=== PATIENT | male | born 1970 | race American Indian/Alaskan Native ===

== ENCOUNTER 2017-04-24 09:59 | Observation (INO) | payer OTHER ==
[2017-04-24 10:08] VITALS: BMI 26.6
[2017-04-24 10:58] LABS: BASO # 0.01 K/mm3 (0.0-2.0); BASO % 0.2 % (0.0-3.0); EOS # 0.1 (0.0-0.7); GRAN # 2.91 (1.4-6.5); GRAN % 65.4 % (50.0-68.0); HEMATOCRIT 48.2 % (42.0-52.0); LYMPH # 1.1 (1.2-3.4); LYMPH % 24.5 % (22.0-35.0); MEAN CELL VOLUME 90.9 fl (80.0-105.0); MEAN CORPUSCULAR HEMOGLOBIN 32.3 pg (25.0-35.0); MEAN CORPUSCULAR HGB CONC 35.5 g/dl (31.0-37.0); MEAN PLATELET VOLUME 11.2 fl (7.0-11.0); MONO # 0.4 (0.1-0.6); MONO % 7.9 % (1.0-6.0); RED CELL DISTRIBUTION WIDTH 13.2 % (11.5-14.5); WHITE BLOOD COUNT 4.5 10^3/ul (4.5-11.0)
--- NOTE | 2017-04-24 10:58 | RAD ---
HISTORY: palpitations COMPARISON: Comparison chest 04/08/2016 FINDINGS: In situ left-sided PICC line with tip in the SVC LUNGS: Poor inspiration with low lung volumes, crowded bronchovascular markings and bibasilar atelectasis; developing lower lobe infiltrates could be excluded with followup radiographs. . Tiny bilateral effusions not excluded PLEURA: As above. No pneumothorax apparent. CARDIOVASCULAR: Heart size is upper limits of normal/ borderline enlarged. Metallic clips seen in the right hilar region. Correlation with surgical history recommended OSSEOUS STRUCTURES: Old healed right posterior fifth rib fracture VISUALIZED UPPER ABDOMEN: Normal. OTHER FINDINGS: None. IMPRESSION: Poor inspiration with low lung volumes, crowded bronchovascular markings and bibasilar atelectasis; developing lower lobe infiltrates could be excluded with followup radiographs. . Tiny bilateral effusions not excluded
--- NOTE | 2017-04-24 11:02 | ED PDOC ---
Arrival/HPI - History of Present Illness Time/Duration: Other (upon waking) Symptom Onset: Sudden Symptom Course: Intermittent <Andrew Diaz - Last Filed: 04/24/17 14:23> - General Historian: Patient - History of Present Illness Activities at Onset: Light <Mika Humphrey - Last Filed: 04/24/17 17:22> - General Chief Complaint: Dizziness/Lightheaded Time Seen by Provider: 04/24/17 10:01 - History of Present Illness Narrative History of Present Illness (Text): 04/24/17 10:50 This is a 47 year old male with PMHx Lung CA s/p resection, COPD, pulmonary fibrosis who presents complaining of dizziness since waking up this morning. Patient describes it as the room is spinning. Patient also subsequently developed palpitations and SOB. Patient called the ambulance but upon arrival, patient states that they told him that his vitals were stable and he was asymptomatic at the time. The symptoms returned prompting him to call again and was brought in. Patient states that this has never happened before. Patient states that he has been feeling unfocused this past week. He states that 2 weeks ago, Dr. Adamson removed "300 units of blood" from him in order to prevent his blood from clotting. Patient denies headache, chest pain and dyspnea at this time. Patient states that he is currently asymptomatic after arrival to the ED. PMHx: Lung CA, COPD, pulmonary fibrosis PSHx: Tumor resection in 2015 and partial right lung resection Allergies: NKDA Social: Intermittent on/off smoker for past 20 years. Denies alcohol, drugs. 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 PMD: Dr. Rodriguez Heme/Onc: Dr. Adamson (Andrew Diaz) Past Medical History - Provider Review Nursing Documentation Reviewed: Yes - Infectious Disease Hx of Infectious Diseases: None - Cardiac Hx Pacemaker: No - Pulmonary Hx Respiratory Disorders: Yes Other/Comment: cystic fibrosis - Neurological Hx Paralysis: No - Hematological/Oncological Hx Blood Transfusions: No - Musculoskeletal/Rheumatological Hx Musculoskeletal Disorders: No - Psychiatric Hx Emotional Abuse: No Hx Physical Abuse: No Hx Substance Use: Yes (MARIJUANA DAILY) - Anesthesia Hx Anesthesia: No Hx Anesthesia Reactions: No Hx Malignant Hyperthermia: No - Suicidal Assessment Feels Threatened In Home Enviroment: No <Andrew Diaz - Last Filed: 04/24/17 14:23> Family/Social History - Physician Review Nursing Documentation Reviewed: Yes Family/Social History: No Known Family HX Smoking Status: Never Smoked Hx Alcohol Use: Yes (1-2 BEERS DAY) Hx Substance Use: Yes (MARIJUANA DAILY) <Andrew Diaz - Last Filed: 04/24/17 14:23> Allergies/Home Meds <Andrew Diaz - Last Filed: 04/24/17 14:23> <Mika Humphrey - Last Filed: 04/24/17 17:22> Allergies/Adverse Reactions: Allergies No Known Allergies Allergy (Verified 04/24/17 10:09) Home Medications: Home Meds Medication Instructions Recorded Confirmed Fluticasone/Vilanterol [Breo 1 inhaler INH DAILY 04/24/17 04/24/17 Ellipta 100-25 Mcg INH] Nintedanib Esylate [Ofev] 150 mg PO DAILY 04/24/17 04/24/17 Review of Systems - Review of Systems Constitutional: Normal Eyes: Normal ENT: Normal Respiratory: SOB (resolved currently) Cardiovascular: Palpitations (resolved currently). absent: Chest Pain Gastrointestinal: Normal Genitourinary Male: Normal Musculoskeletal: Normal Skin: Normal Neurological: Dizziness (resolved currently). absent: Headache Endocrine: Normal Hemo/Lymphatic: Normal Psychiatric: Normal <Andrew Diaz - Last Filed: 04/24/17 14:23> Physical Exam Vital Signs Reviewed: Yes Temperature: Afebrile Blood Pressure: Hypertensive Pulse: Tachycardic Respiratory Rate: Normal Appearance: Positive for: Well-Appearing Pain Distress: None Mental Status: Positive for: Alert and Oriented X 3 - Systems Exam Head: Present: Atraumatic, Normocephalic Pupils: Present: PERRL Extroacular Muscles: Present: EOMI Conjunctiva: Present: Normal Ears: Present: Erythema (slight erythema left ear close to TM) Mouth: Present: Moist Mucous Membranes Neck: Present: Normal Range of Motion Respiratory/Chest: Present: Good Air Exchange, Other (crackles heard bilaterally in the lower lobes, which the patient seemed aware of as a chronic finding). No: Accessory Muscle Use, Wheezes, Rhonchi Cardiovascular: Present: Normal S1, S2, Tachycardic Abdomen: Present: Normal Bowel Sounds. No: Tenderness, Distention Upper Extremity: Present: Normal Inspection, NORMAL PULSES. No: Edema Lower Extremity: Present: Normal Inspection, NORMAL PULSES. No: Edema, CALF TENDERNESS Neurological: Present: GCS=15, CN II-XII Intact, Speech Normal, Motor Func Grossly Intact, Normal Sensory Function Skin: Present: Warm, Dry, Normal Color. No: Rashes Psychiatric: Present: Alert, Oriented x 3 <Andrew Diaz - Last Filed: 04/24/17 14:23> Medical Decision Making - Lab Interpretations I have reviewed the lab results: Yes - EKG Interpretation Interpreted by ED Physician: Yes Type: 12 lead EKG <Andrew Diaz - Last Filed: 04/24/17 14:23> <Mika Humphrey - Last Filed: 04/24/17 17:22> ED Course and Treatment: 04/24/17 12:27 CBC, CMP, Coags, EKG, Portable CXR, D dimer EKG showed Sinus tachycardia at rate 102. Portable CXR: IMPRESSION: Poor inspiration with low lung volumes, crowded bronchovascular markings and bibasilar atelectasis; developing lower lobe infiltrates could be excluded with followup radiographs. . Tiny bilateral effusions not excluded D Dimer negative. Dr. Schulz covering for Dr. Adamson accepted the patient for observation. ( Andrew Diaz) 04/24/17 12:50 Patient Seen With Resident: In agreement with resident note which contains more details about the patient. Patient was seen and evaluated with resident. Came up with plan and treatment together. 47 year old male presents complaining of dizziness since waking up this morning. Upon further evaluation the patient reports for several days he has not been feeling himself, stating that when he drives he has had episodes of lightheadedness that he "feels like I'm going to pass out" but these have NOT been associated with any dizziness or pain or shortness of breath. Today the patient reports intermittent sensation of dizziness that are associated with palpations. While being observed in ED, he states that he has not had any palpitations or episodes of dizziness. He DENIES any acute chest pain or shortness of breath. He is noted to have prior history of lung disease, lung cancer, but states his breathing in ED is AT HIS BASELINE. No respiratory distress is noted. CXR reviewed with interstitial changes although I feel possibly chronic as known lung disease and no fever or respiratory distress. No focal neuro deficits with serial exam. On initial exam, sinus tachycardia although with observation heart rate improved to a regular rate of 90, no hypotension noted. Cannot exclude underlying cardiac arrhythmia, cardiac disease given his history , have recommended admission for monitoring as well as cardiology and neurologic evaluation. Ddimer unremarkable. No chest pain or pleuritic pain or calf pain on re- evaluation. Case d/w Dr. Yohana Zendejas, covering for Dr. Adamson, accepts patient to his service. (Mika Humphrey) - Lab Interpretations Lab Results: 04/24/17 10:20 04/24/17 10:20 Lab Results 04/24/17 10:20: Sodium 137, Potassium 3.6, Chloride 99, Carbon Dioxide 25, Anion Gap 17, BUN 12, Creatinine 0.8, Est GFR ( Amer) > 60, Est GFR (Non- Af Amer) > 60, Random Glucose 113 H, Calcium 9.2, Total Bilirubin 1.2, AST 33, ALT 27, Alkaline Phosphatase 74, Lactate Dehydrogenase 569, Total Creatine Kinase 224, Troponin I < 0.01, Total Protein 7.3, Albumin 4.3, Globulin 3.0, Albumin/Globulin Ratio 1.4 04/24/17 10:20: PT 10.9, INR 1.01, APTT 27.0, D-Dimer, Quantitative 0.40 04/24/17 10:20: WBC 4.5, RBC 5.30, Hgb 17.1, Hct 48.2, MCV 90.9, MCH 32.3, MCHC 35.5, RDW 13.2, Plt Count 180, MPV 11.2 H, Gran % 65.4, Lymph % (Auto) 24.5, [place] % (Auto) 7.9 H, Eos % (Auto) 2.0, Baso % (Auto) 0.2, Gran # 2.91, Lymph # 1.1 L, [place] # 0.4, Eos # 0.1, Baso # 0.01 - RAD Interpretation Radiology Orders: 04/24/17 10:40 CHEST PORTABLE [RAD] Stat 04/24/17 12:37 HEAD W/O CONTRAST [CT] Stat - Medication Orders Current Medication Orders: Acetaminophen (Tylenol 325mg Tab) 650 mg PO Q6H PRN PRN Reason: Pain, Mild (1-3) Folic Acid (Folic Acid) 1 mg PO DAILY KRISTEN Last Admin: 04/24/17 14:18 Dose: 1 mg Sodium Chloride (Sodium Chloride 0.9%) 1,000 mls @ 50 mls/hr IV .Q20H KRISTEN Stop: 04/24/17 23:59 Last Admin: 04/24/17 15:15 Dose: 50 mls/hr Meclizine HCl (Antivert) 25 mg PO Q8H PRN PRN Reason: Dizziness Metoprolol Tartrate (Lopressor) 25 mg PO BID KRISTEN Non-Formulary Medication (Breo) 1 inhaler INH DAILY KRISTEN Non-Formulary Medication (Ofev) 150 mg PO DAILY KRISTEN Discontinued Medications Non-Formulary Medication (Ofev) 1 tab PO DAILY KRISTEN <Andrew Diaz - Last Filed: 04/24/17 14:23> - Scribe Statement The provider has reviewed the documentation as recorded by the Scribe <Mika Humphrey - Last Filed: 04/24/17 17:22> - Scribe Statement Maci Oliver All medical record entries made by the Scribe were at my direction and personally dictated by me. I have reviewed the chart and agree that the record accurately reflects my personal performance of the history, physical exam, medical decision making, and the department course for this patient. I have also personally directed, reviewed, and agree with the discharge instructions and disposition. (Mika Humphrey) Disposition/Present on Arrival - Present on Arrival Any Indicators Present on Arrival: No History of DVT/PE: No History of Uncontrolled Diabetes: No Urinary Catheter: No History of Decub. Ulcer: No History Surgical Site Infection Following: None - Disposition Have Diagnosis and Disposition been Completed?: Yes Disposition Time: 12:30 Patient Plan: Admission <Andrew Diaz - Last Filed: 04/24/17 14:23> <Mika Humphrey - Last Filed: 04/24/17 17:22> - Disposition Diagnosis: Dizziness, Palpitations Disposition: HOSPITALIZED Patient Problems: Current Active Problems Problem Status Onset Dizziness Acute Palpitations Acute Condition: FAIR
[2017-04-24 11:06] LABS: ALB/GLOB RATIO 1.4 (1.1-1.8); ALKALINE PHOSPHATASE 74 U/L (38-126); ALT/SGPT 27 U/L (7-56); AST/SGOT 33 U/L (17-59); BILIRUBIN,TOTAL 1.2 mg/dL (0.2-1.3); BLOOD UREA NITROGEN 12 mg/dL (7-21); CALCIUM 9.2 mg/dL (8.4-10.5); CARBON DIOXIDE 25 mmol/L (21-33); CHLORIDE 99 mmol/L (98-107); GFR AFRICAN-AMERICAN > 60; GLUCOSE,RANDOM 113 mg/dL (70-110); POTASSIUM 3.6 mmol/L (3.6-5.0); SODIUM 137 mmol/L (132-148); TOTAL PROTEIN 7.3 g/dL (5.8-8.3)
[2017-04-24 11:09] LABS: INR 1.01 (0.93-1.08)
[2017-04-24 11:14] LABS: D DIMER 0.4 mg/L FEU (0-0.50)
[2017-04-24 11:35] LABS: TROPONIN I < 0.01 ng/mL
--- NOTE | 2017-04-24 13:09 | CT ---
PROCEDURE: CT HEAD WITHOUT CONTRAST. HISTORY: near syncope COMPARISON: None available. TECHNIQUE: Axial computed tomography images were obtained through the head/brain without intravenous contrast. Radiation dose: Total exam DLP = 725.84 mGy-cm. This CT exam was performed using one or more of the following dose reduction techniques: Automated exposure control, adjustment of the mA and/or kV according to patient size, and/or use of iterative reconstruction technique. FINDINGS: HEMORRHAGE: No acute parenchymal, subarachnoid nor extra-axial hemorrhage. BRAIN: No evidence of large infarct. No obvious parenchymal nor extra-axial mass or collection seen on this noncontrast study. Ventricular and sulcal size are within range of normal for this patient's stated age. VENTRICLES: No evidence of obstructive hydrocephalus CALVARIUM: There are no acute calvarial fracture seen. Note made a few scattered subcutaneous calcifications nonspecific. PARANASAL SINUSES: Unremarkable as visualized. No significant inflammatory changes. MASTOID AIR CELLS: Unremarkable as visualized. No inflammatory changes. OTHER FINDINGS: None. IMPRESSION: The no acute intracranial hemorrhage. Normal CT of the Head.
--- NOTE | 2017-04-24 14:17 | CARD ---
APPROVED REPORT EKG Measurement Heart [id number] <Conclusion> Sinus tachycardia Otherwise normal ECG
[2017-04-24] MEDS ORDERED: Sodium Chloride 0.9% 1,000 ML IV SCH (14:45)
[2017-04-24] MEDS: MethylPREDNISolone 40 mg Vial IVP SCH (22:17)
--- NOTE | 2017-04-25 03:21 | CON ---
HISTORY OF PRESENT ILLNESS: This is a 47-year-old black male with past medical history of lung CA, status post resection, COPD, pulmonary fibrosis, who came to the hospital with dizziness on waking up this morning and called to evaluate the patient. The patient was recently discharged from the hospital. PAST MEDICAL HISTORY: Lung CA, COPD, pulmonary fibrosis. PAST SURGICAL HISTORY: Tumor resection in 2015 and partial right lung resection. ALLERGIES: NO KNOWN DRUG ALLERGIES. PHYSICAL EXAMINATION HEENT: Normocephalic and atraumatic. NECK: Supple. NEUROLOGIC: Awake, alert, and oriented to self and place. No aphasia. Cranial nerves II through XII are tested. Pupils reactive. EOM intact. Visual field full. No facial asymmetry. Tongue midline. Motor examination, moves all the extremities equally. Cerebellar and gait deferred. IMPRESSION: Dizziness, possibly secondary to his chemo medication and discussed the case with Dr. Schulz. Continue present management. We will follow up. Kings Linares MD
--- NOTE | 2017-04-25 04:56 | HP ---
For Dr. Adamson. CHIEF COMPLAINT: Dizziness. HISTORY OF PRESENT ILLNESS: The patient is a 47-year-old black male admitted via the emergency room for observation after reporting worsening dizziness that has been troubling him for the past week with the patient having sensation almost presyncopal this morning after feeling lightheaded for the past seven to ten days. He denies nausea or vomiting or any trauma with patient admitting to using Q-tips most recently prior to a week ago, but no issues with possible inner ear irritation reported. With this the patient wearing glasses that has had been using for approximately a years time. He also has history of as below for CA of the lungs status post resection with chronic respiratory problems including pulmonary fibrosis with ground-glass appearance on his CT scan with emphysema. He also has Polycythemia vera indices for which phlebotomy was performed prior the two weeks prior for 300 mL taken out. He is now resting comfortably; however, the dizziness persist. ALLERGIES: NO KNOWN DRUG ALLERGIES. 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 Alvarez. Otherwise, he denies any medications; however, he was treated in the past with Gilotrif, which he was unable to tolerate and was then discontinued. 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 No significant infiltrative changes from previous exam. Re-demonstration of ground-glass opacities at the lower lobes and demonstrate mild increased FDG uptake, likely represents pneumonitis. Otherwise, his past medical history is significant for the pulmonary fibrosis, emphysema. FAMILY HISTORY AND SOCIAL HISTORY: The patient quit occasional smoking in the past when his lung cancer was diagnosed in 02/2015 with no alcohol use or recreational drugs. Otherwise, noncontributory. REVIEW OF SYSTEMS: A 12-point review of systems was negative except as above. PHYSICAL EXAMINATION: VITAL SIGNS: Temperature 98.6, pulse 89, respirations 18, blood pressure 145/80, and pulse ox 97%. HEENT: Unremarkable including otoscopic exam of his tympanic membranes. NECK: Supple. HEART: Regular rate. LUNGS: Few crackles the bases bilaterally with chronic nature. ABDOMEN: Soft, and nontender. EXTREMITIES: No edema. SKIN: Warm and dry. NEUROLOGIC: Awake, alert, with dizziness sensation reported. The patient has a CT scan of his head done showing no acute intracranial hemorrhage normal CT of the head. He had a chest x-ray done, which was read as poor inspiration with low lung volumes, crowded bronchovascular markings, bibasilar atelectasis developed lower lobe infiltrates could be excluded with followup radiographs, tiny bilateral effusions not excluded with an EKG was done, which was read by Dr. Humphrey emergency room physician as sinus tach. The patient's other testing included a white blood cell count 4.5, hemoglobin 17.1, hematocrit 48.2, and platelet count 180,000 with a chem metabolic panel completely within normal range with INR 1.0. D-dimer 0.4. ASSESSMENT: For this patient is that of presyncope, rule out cardiac etiology, dizziness and patient with severe pulmonary fibrosis, chronic obstructive pulmonary disease, emphysema with Polycythemia vera indices for which phlebotomy was performed periodically, history of stage IV cancer of the lung, non small cell cancer with right lobe lobectomy treated with Carboplatin and Alimta. PLAN: For this patient after conversation with Dr. Adamson, continue his present medical regimen. His medicines at this point include Breo and Ovef, which are non-formulary, we will ask the patient to bring them from home in the interm. We will give meclizine 25 mg q. 8 hours p.r.n. for dizziness along with consult with Dr. Linares neurology, Dr. Jo pulmonary as Dr. Alvarez does not come to this hospital and Dr. Burch cardiology. We will monitor him clinically with labs with the prognosis and monitor him on telemetry. Prognosis for this patient is guarded. Lavell Schulz MD
--- NOTE | 2017-04-25 05:00 | CON ---
DATE: 04/24/2017 REASON FOR CONSULTATION: Cardiac evaluation, admitted with syncope, near syncope, dizziness. BRIEF CLINICAL HISTORY: This is a 47-year-old male with past medical history significant for lung CA, status post resection 2 years ago, admitted with complaints of dizziness, near syncope. The patient stated that he woke up in the morning and he went to the kitchen, where he felt things are spinning, not really spinning (sidewise moving), so he drank 3 bottles of water and felt a little bit better, then he tried to go to the bathroom, but still he felt dizziness, and the same thing that things are moving sidewise, so called the ambulance. The ambulance came in and checked the vitals, told it was normal and wanted to take to the hospital, but the patient preferred to stay at home and let the ambulance go. Later on after half an hour, symptoms appeared again, things were spinning and sidewise, and also heart was racing, so the patient decided to come to the emergency room. Denies any chest pain, denies any shortness of breath,but complains of palpitation. PAST MEDICAL HISTORY: Significant for lung CA, status post resection 2 years ago. FAMILY HISTORY: No significant history of coronary artery disease, COPD. SOCIAL HISTORY: Drinks 2 beer can everyday. Smokes 2 cigarettes for the last 20 years off and on, but quit smoking, then he came back again. CURRENT MEDICATIONS: The patient is taking Ofev 150 mg daily and cancer treatment. ALLERGIES: NO KNOWN DRUG ALLERGIES. REVIEW OF SYSTEMS: As per HPI. PHYSICAL EXAMINATION VITAL SIGNS: Temperature afebrile, heart rate 89, blood pressure 145/80. HEENT: PERRLA. Extraocular muscles intact. NECK: Supple. No carotid bruit. No thyromegaly. CHEST: Clear to auscultation. HEART: S1, S2 regular. ABDOMEN: Soft. EXTREMITIES: Clubbing, cyanosis negative. LABORATORY DATA: Blood workup as follows, WBC 4.9, hemoglobin ____, hematocrit 48.2, platelet count 180. Chemistry shows sodium 130, potassium 3.8, chloride 99, carbon dioxide 25, anion gap of 17, BUN 12, creatinine 0.8. Troponin 0.01. EKG shows sinus tachycardia, no acute ST-T changes noted. IMPRESSION: Sinus tachycardia, dizziness, things spinning around, mostly sidewise, rule out orthostatic hypotension, rule out any structural heart disease. I recommend he get echo, we will do the orthostatic hypotension, gentle hydration, lipid profile, TSH, hemoglobin A1c. Further recommendation depending upon hospital course. We will follow with you. The patient's hemoglobin count is elevated. The patient states that 2 to 3 weeks ago he had in Dr. Adamson's office 300 mL of blood removed, probably phlebotomy was done, cannot rule out hypercoagulability state. We will follow with you. We will get more information from hem/onc, further recommendation, hospital course and findings of the initial workup. The patient also gives a history of pulmonary fibrosis, chronic obstructive pulmonary disease, and lung CA. Siddharth Burch MD
[2017-04-25 05:43] VITALS: RESP 20; O2SAT 94
--- NOTE | 2017-04-25 06:26 | CON ---
PULMONARY CONSULT DATE: 04/24/2017 REFERRING PHYSICIAN: Lavell Schulz MD REASON FOR CONSULTATION: Chronic obstructive lung disease, history of lung cancer, pulmonary fibrosis, may have sleep apnea syndrome, and polycythemia. HISTORY OF PRESENT ILLNESS: This is a 47-year-old gentleman known to have a lung cancer. Had a resection done in the past, also had a chemotherapy. Last PET scan does not show any recurrent or metastatic disease, also has a chronic obstructive lung disease, pulmonary fibrosis, polycythemia, recently had a phlebotomy done for some dizzy near syncopal episode, came into emergency room, found to be polycythemia and short of breath and has some cough. No hemoptysis. No hematemesis. No hematuria. No diarrhea reported. Admit to have snoring at nighttime, daytime sleepy and tired. PAST MEDICAL HISTORY: Chronic obstructive lung disease, pulmonary fibrosis, secondary polycythemia, and lung cancer. ALLERGIES: NONE KNOWN. SOCIAL HISTORY: He stopped smoking two years ago. Denied any alcohol use. FAMILY HISTORY: No significant cardiopulmonary disease reported. MEDICATIONS: He is on Antivert 25 mg q. 8 hours p.r.n., Breo inhaler daily, folic acid 1 mg daily, metoprolol tartrate 25 mg twice a day, Ofev 150 mg daily, IV fluid normal saline 50 mL per hour, and Tylenol on p.r.n. basis. REVIEW OF SYSTEMS: Presently, there is no headache, no rhinitis. Short of breath with exertion. Has a dry cough. No nausea. No vomiting. No diarrhea. No leg pain or leg swelling. PHYSICAL EXAMINATION: GENERAL: In no acute distress. VITAL SIGNS: Temperature is 98, heart rate 82, respiratory rate is 20, blood pressure 124/80, and pulse oximetry 97% on room air. HEENT: Moist mucous membrane. Crowded airway. Mallampati score is IV. NECK: Supple. No JVD. LUNGS: Bilateral crackles and scattered rhonchi. HEART: S1 and S2. ABDOMEN: Soft and nontender. No organomegaly. EXTREMITIES: There is no edema. NEUROLOGIC: Awake and follows simple commands. LABORATORY DATA: Shows hemoglobin 17.1, hematocrit 48.2, WBC 4.5, and platelets 180. INR is 1.01 and PTT is 27. Room air ABG shows pH of 7.41, PCO2 of 42, and O2 is 76. Sodium 137, potassium 3.6, chloride 99, bicarbonate 25, BUN 12, creatinine 0.8, glucose 113, calcium 9.2, total bilirubin 1.2, AST 33, ALT 27, and alkaline phosphatase is 74. Troponin is less than 0.01. Albumin is 4.3. CAT scan of the head was done in the ER shows no acute intracranial hemorrhage or bleed. Chest x-ray done in the ER shows poor inspiratory with low lung volume, crowded bronchovascular markings, basal atelectasis, developing lower lobe infiltrate could be followup x-rays, tiny bilateral effusion. IMPRESSION AND PLAN: Near syncope; polycythemia, which is secondary; lung cancer, history of resection as well as chemotherapy; pulmonary fibrosis; may have a sleep apnea syndrome. Case discussed with Dr. Adamson in detail. We will add inhaled bronchodilator, IV Solu-Medrol, and doxycycline. We will get an echocardiogram to assess right ventricular and left ventricular function, make sure there is no pulmonary hypertension, gastric prophylaxis, deep venous thrombosis prophylaxis. According to the patient, he has a pulmonary function test done as an outpatient. We requested him if he can bring it and see how his FEV1 is to understand the severity of disease. I think, he should have a sleep study upon discharge as an outpatient to rule out nocturnal desaturation one of the cause, which easily can be eliminated for polycythemia. Thank you and we will follow with you. Siddharth Jo MD
[2017-04-25 07:27] LABS: GRAN # 6.87 (1.4-6.5); GRAN % 90.7 % (50.0-68.0); HEMATOCRIT 50.9 % (42.0-52.0); LYMPH # 0.6 (1.2-3.4); LYMPH % 7.5 % (22.0-35.0); MEAN CORPUSCULAR HEMOGLOBIN 32.4 pg (25.0-35.0); MEAN CORPUSCULAR HGB CONC 35.2 g/dl (31.0-37.0); MEAN PLATELET VOLUME 11.7 fl (7.0-11.0); MONO # 0.1 (0.1-0.6); MONO % 1.8 % (1.0-6.0); PLATELET COUNT 206 10^3/uL (120.0-450.0); RED CELL DISTRIBUTION WIDTH 13.4 % (11.5-14.5); WHITE BLOOD COUNT 7.6 10^3/ul (4.5-11.0)
[2017-04-25 07:47] LABS: ALB/GLOB RATIO 1.5 (1.1-1.8); ALKALINE PHOSPHATASE 80 U/L (38-126); ALT/SGPT 23 U/L (7-56); AST/SGOT 25 U/L (17-59); BLOOD UREA NITROGEN 12 mg/dL (7-21); CALCIUM 9.8 mg/dL (8.4-10.5); CARBON DIOXIDE 25 mmol/L (21-33); CHLORIDE 103 mmol/L (98-107); CHOLESTEROL 229 mg/dL (130-200); GFR AFRICAN-AMERICAN > 60; GLUCOSE,RANDOM 165 mg/dL (70-110); MAGNESIUM 1.8 mg/dL (1.7-2.2); PHOSPHOROUS 2.1 mg/dL (2.5-4.5); POTASSIUM 4.6 mmol/L (3.6-5.0); SODIUM 140 mmol/L (132-148); TOTAL PROTEIN 7.4 g/dL (5.8-8.3)
[2017-04-25] MEDS ORDERED: Arformoterol 15 mcg/2 ml Inh Sol IH SCH (08:00)
[2017-04-25] MEDS ORDERED: Budesonide 0.5 mg/2 ml Inhal Susp UD IH SCH (08:00)
[2017-04-25] MEDS: MethylPREDNISolone 40 mg Vial IVP SCH (09:26)
[2017-04-25] MEDS ORDERED: Enoxaparin 40 mg Syringe SC SCH (10:00)
[2017-04-25] MEDS ORDERED: OFEV 150 MG PO SCH ×2 (10:00)
[2017-04-25] MEDS ORDERED: OFEV PO SCH (10:00)
[2017-04-25] MEDS ORDERED: BREO INH SCH ×2 (10:00)
[2017-04-25 10:06] LABS: NEUTROPHIL 88 % (50.0-70.0)
[2017-04-25 10:07] LABS: PLATELET ESTIMATE NORMAL (NORMAL)
[2017-04-25 11:47] VITALS: BP 120/78; PULSE 86; TEMP 98.3
[2017-04-25] MEDS ORDERED: Potassium & Sodium Phosphate PO SCH (14:00)
--- NOTE | 2017-04-25 15:21 | PN ---
DATE OF SERVICE: 04/25/2017 REASON FOR CONSULTATION: Cardiac evaluation, admitted with syncope, near syncope, dizziness. SUBJECTIVE: The patient denies any chest pain or shortness of breath, denies any palpitations. OBJECTIVE: GENERAL: Lying in the bed, not in apparent distress. VITAL SIGNS: Temperature afebrile, heart rate 86, blood pressure 120/78. HEENT: PERRLA. Extraocular muscles intact. NECK: Supple. No carotid bruits or thyromegaly. CHEST: Clear to auscultation. HEART: S1 and S2 regular. ABDOMEN: Soft. EXTREMITIES: Clubbing and cyanosis negative. LABORATORY DATA: Blood workup as follows: WBC is 7.6, hemoglobin 17.3, hematocrit 50.9, platelet count 206. Chemistry shows sodium 140, potassium 4.6, chloride 103, carbon dioxide 25, anion gap of 17, BUN 12, creatinine 0.9, triglyceride 223, cholesterol 229, LDL 159, HDL 51, TSH 0.76. IMPRESSION: Near syncope, pulmonary fibrosis, lung carcinoma, status post resection, so far no evidence of acute myocardial infarction, may have sleep apnea, the patient's hemoglobin is elevated, history of polycythemia, says that he has it fully phlebotomized in Dr. Adamson's office, hyperlipidemia. RECOMMENDATIONS: We will get echo to assess LV function. So far, telemetry monitoring did not show any arrhythmia. We will discontinue telemetry and schedule a stress test as an outpatient for risk stratification. We will discuss with you. We will start anti-lipid agent because of hyperlipidemia and hypertriglyceridemia, and we will supplement phosphate. Further followup with Heme/Onc and with stress test as outpatient. Thank you Dr. Schulz for providing me the opportunity in taking care of Ralph Meyer. Siddharth Burch MD
--- NOTE | 2017-04-25 18:05 | CARD ---
APPROVED REPORT EXAM: Two-dimensional and M-mode echocardiogram with Doppler and color Doppler. INDICATION Syncope 2D DIMENSIONS Left Atrium (2D)3.6 (1.6-4.0cm)IVSd1.1 (0.7-1.1cm) LVDd4.3 (3.9-5.9cm)PWd1.2 (0.7-1.1cm) LVDs2.9 (2.5-4.0cm)FS (%) 31.1 % LVEF (%)59.2 (>50%) M-Mode DIMENSIONS Aortic Root2.80 (2.2-3.7cm)Aortic Cusp Exc.2.10 (1.5-2.0cm) Aortic Valve AoV Peak Roivbewp584.0cm/Marcio Peak GR.4mmHg Mitral Valve E/A ratio0.0 TDI E/Lateral E'0.0E/Medial E'0.0 Tricuspid Valve TR Peak [id number] [id number] Peak Gr.21mmHg [id number] LEFT VENTRICLE The left ventricle is normal size. There is normal left ventricular wall thickness. The left ventricular function is normal.EF-55-6-0% There is normal LV segmental wall motion. The left ventricular diastolic function is normal. No left ventricle thrombus noted on this study. There is no ventricular septal defect visualized. There is no left ventricular aneurysm. There is no mass noted in the left ventricle. RIGHT VENTRICLE The right ventricle is normal size. There is normal right ventricular wall thickness. The right ventricular systolic function is normal. ATRIA The left atrium size is normal. The right atrium size is normal. The interatrial septum is intact with no evidence for an atrial septal defect. AORTIC VALVE The aortic valve is normal in structure. No aortic regurgitation is present. There is no aortic valvular stenosis. There is no aortic valvular vegetation. MITRAL VALVE The mitral valve is thickened but opens well. Mitral regurgitation is trace. There is no mitral valve stenosis. There is no evidence of mitral valve prolapse. TRICUSPID VALVE The tricuspid valve leaflets are thickened , but open well. There is trace tricuspid regurgitation.RVSP-31 mmof hg. There is no tricuspid valve stenosis. There is no tricuspid valve prolapse or vegetation. PULMONIC VALVE The pulmonary valve is normal in structure. GREAT VESSELS The aortic root is normal in size. The ascending aorta is normal in size. The pulmonary artery is normal. The IVC is normal in size and collapses >50% with inspiration. PERICARDIAL EFFUSION There is no pleural effusion. There is no pericardial effusion. <Conclusion> Normal chamber Size WEF-55-60% Trace MR/TR RVSP-31 mmof hg.
--- NOTE | 2017-04-25 20:23 | CP.PCM.PN ---
<Jethro Fields - Last Filed: 04/25/17 22:30> Subjective - Date & Time of Evaluation Date of Evaluation: 04/25/17 Time of Evaluation: 09:30 - Subjective Subjective: Neurology Progress Note for Dr. Linares Service Patient seen and examined at bedside. No acute complaints. No acute events overnight. However, later this afternoon, patient elected to sign out AMA. The house physician was called, and discussed with patient the risk of leaving against medical advice, encouraging him to stay and finish treatment, but the patient insisted on signing out AMA anyway. Objective - Vital Signs/Intake and Output Vital Signs (last 24 hours): Temp Pulse Resp BP Pulse Ox 98.3 F 86 20 120/78 94 L 04/25/17 11:47 04/25/17 11:47 04/25/17 11:47 04/25/17 11:47 04/25/17 05:42 - Labs Labs: 04/25/17 07:00 04/25/17 07:00 PT 10.9 Seconds (9.9-11.8) 04/24/17 10:20 INR 1.01 (0.93-1.08) 04/24/17 10:20 APTT 27.0 Seconds (23.7-30.8) 04/24/17 10:20 - Constitutional Appears: Non-toxic, No Acute Distress - Head Exam Head Exam: ATRAUMATIC, NORMAL INSPECTION, NORMOCEPHALIC - Eye Exam Eye Exam: EOMI, Normal appearance. absent: Conjunctival injection, Scleral icterus Pupil Exam: absent: Irregular, Unequal - ENT Exam ENT Exam: Mucous Membranes Moist - Neck Exam Neck Exam: Full ROM, Normal Inspection - Respiratory Exam Respiratory Exam: Decreased Breath Sounds (mildly decreased breath sounds in all flores), Clear to Ausculation Bilateral (clear to auscultation throughout, no clear area of deficit to indicate site of partial R-lung resection), NORMAL BREATHING PATTERN. absent: Rales, Rhonchi, Wheezes - Cardiovascular Exam Cardiovascular Exam: REGULAR RHYTHM, RRR, +S1, +S2. absent: Bradycardia, Tachycardia, Irregular Rhythm, +S4 - GI/Abdominal Exam GI & Abdominal Exam: Soft, Normal Bowel Sounds. absent: Distended, Firm, Rigid , Tenderness - Extremities Exam Extremities Exam: Full ROM, Normal Capillary Refill, Normal Inspection. absent : Joint Swelling, Pedal Edema - Neurological Exam Neurological Exam: Alert, Awake, CN II-XII Intact, Oriented x3 - Psychiatric Exam Psychiatric exam: Normal Affect, Normal Mood - Skin Skin Exam: Dry, Intact, Normal Color, Warm Assessment and Plan - Assessment and Plan (Free Text) Assessment: This is a 47 yo M with PMH of Non-small cell Lung Ca s/p resection, COPD, Pulm fibrosis, and PCV (s/p phlebotomy ~1 wk prior) who [place] [facility] [place] of room spinning/dizziness, leading to palpitations and shortness of breath. Patient likely experiencing near-syncope 2/2 vasovagal component. There is also likely a component of anxiety involved, as symptoms resolved with the arrival of EMS after the first episode at home, and recurred after EMS departed. Plan: 1) Gently hydrate 2) Orthostatics 3) f/u Cardio recs Patient reviewed and discussed with attending, Dr. Linares. At this time, patient is neurologically stable. <Adrian Linares - Last Filed: 04/26/17 10:18> Objective - Vital Signs/Intake and Output Vital Signs (last 24 hours): Temp Pulse Resp BP Pulse Ox 98.3 F 86 20 120/78 94 L 04/25/17 11:47 04/25/17 11:47 04/25/17 11:47 04/25/17 11:47 04/25/17 05:42 - Labs Labs: 04/25/17 07:00 04/25/17 07:00 PT 10.9 Seconds (9.9-11.8) 04/24/17 10:20 INR 1.01 (0.93-1.08) 04/24/17 10:20 APTT 27.0 Seconds (23.7-30.8) 04/24/17 10:20 Attending/Attestation - Attestation I have personally seen and examined this patient.: Yes I have fully participated in the care of the patient.: Yes I have reviewed all pertinent clinical information, including history, physical exam and plan: Yes
--- NOTE | 2017-04-26 02:34 | PN ---
DATE: 04/25/2017 PULMONARY PROGRESS NOTE REFERRING PHYSICIAN: Lavell Schulz MD SUBJECTIVE: The patient is sitting at the side of the bed, feels better, decreased cough and shortness of breath. No chest pain. No nausea, vomiting ,diarrhea, leg pain or leg swelling. OBJECTIVE: GENERAL: In no acute distress. VITAL SIGNS: Temperature is 98, heart rate is 86, respiratory rate is 20, blood pressure 120/78 and pulse ox 94% on room air. HEENT: Moist mucous membranes and crowded airway. NECK: Supple. No JVD. LUNGS: Crackles on the bases. HEART: S1 and S2. ABDOMEN: Soft and nontender. No organomegaly. EXTREMITIES: No edema. NEUROLOGIC: Awake, alert, follows simple commands. MEDICATIONS: He is on Antivert 25 mg q.8 hours p.r.n., Brovana inhaled twice a day, doxycycline 100 mg twice a day, folic acid 1 mg daily, Lipitor 40 mg daily, metoprolol tartrate 25 mg twice a day, Lovenox 40 mg daily, Ofev one tablet daily, Pepcid 40 mg at bedtime, Pulmicort inhaled twice a day. IV fluid normal saline 50 mL per hour, Solu-Medrol 20 mg q.12 hours, and Tylenol p.r.n. basis. LABORATORY DATA: Shows hemoglobin 17.9, hematocrit 50.9, WBC 7.6, and platelet is 206. Sodium 140, potassium 4.6, chloride 103, bicarbonate 25, BUN 12, creatinine 0.9, and glucose 165. Hemoglobin A1c is 6.1. Calcium is 9.8, phosphorus is 2.1, and magnesium 1.8. AST 25, ALT 23, alkaline phosphatase is 80, and albumin is 4.4. Cholesterol is 229. TSH is 0.76. He had echocardiogram done today, which shows right ventricular systolic pressure 31, LV ejection fraction 55% to 60%, mild MR and TR. IMPRESSION AND PLAN: Status post near syncope, polycythemia, which is a secondary polycythemia, history of lung cancer, history of lung resection in the remote past, been on chemotherapy, also carries a diagnosis of pulmonary fibrosis, on Ofev 150 mg daily, may be component of sleep apnea syndrome, upon discharge should get attended sleep study. His PFT reviewed, which was done as an outpatient, shows severe restrictive lung disease. We will suggest follow up pulmonary upon discharge. Siddharth Jo MD
--- NOTE | 2017-05-12 06:09 | DS ---
For Dr. Adamson. SUBJECTIVE: The patient is a 47-year-old male admitted by the emergency room yesterday for severe dizziness, worsening, which are troubling him for the past week with the patient having sensation being presyncopal. With this, he also reports using Q-tips in his ears with possible ear irritation. The patient has a known history of cancer of the lungs, status post resection with pulmonary fibrosis. The patient is now feeling better. His cough is also improved. He is on Antivert with the patient to have secondary polycythemia on Ofev as per Dr. Jo. PHYSICAL EXAMINATION: VITAL SIGNS: Temperature 98.3, pulse 86, respirations 20, blood pressure 120/78 and pulse oximetry is 94%. HEENT: Unremarkable. NECK: Supple. HEART: Regular rate. LUNGS: Crackles at the bases. ABDOMEN: Soft and nontender. EXTREMITIES: No edema. NEUROLOGIC: Awake, alert with no further dizziness he reports. LABORATORY DATA: The patient's labs were done on 04/25/2017 showing white blood cell count of 7.6, hemoglobin of 17.9, hematocrit of 50.9 and platelet count of 206,000 with chem metabolic panel within normal limits with a non-fasting triglyceride of 223. ASSESSMENT: For this patient is that of dizziness; history of non-small cell cancer of the lung, status post resection; chronic obstructive pulmonary disease; pulmonary fibrosis; polycythemia vera, status post phlebotomy, cough, and near syncope. There is also question of anxiety. PLAN: For this patient is to continue present medical regimen, which includes meclizine for his dizziness. His Ofev is to continue only as per Dr. Jo, Pulmonary along with Marika Frazier. Meclizine as needed for dizziness. We will continue folic acid. The plan for this patient is to continue present medical regimen as indicated with followup in the office in one week time or earlier. Lavell Schulz MD
== END 2017-04-25 18:30 | disposition left against medical advice (07) ==
LOC: ED 09:59 → ERH 12:43 → 2RSO 13:35
PROVIDERS: ADMIT Family Medicine; ATTEND Family Medicine
DX: R42 Dizziness and giddiness (principal); E84.9 Cystic fibrosis, unspecified; E78.5 Hyperlipidemia, unspecified; J18.9 Pneumonia, unspecified organism; D75.1 Secondary polycythemia; Z85.118 Personal history of other malignant neoplasm of bronchus and lung; F17.210 Nicotine dependence, cigarettes, uncomplicated; F41.9 Anxiety disorder, unspecified; J44.9 Chronic obstructive pulmonary disease, unspecified; J84.10 Pulmonary fibrosis, unspecified; J98.11 Atelectasis; J98.4 Other disorders of lung; F12.90 Cannabis use, unspecified, uncomplicated; R40.2412 Glasgow coma scale score 13-15, at arrival to emergency department; R00.0 Tachycardia, unspecified; E78.1 Pure hyperglyceridemia; R55 Syncope and collapse; T45.1X5A Adverse effect of antineoplastic and immunosuppressive drugs, initial encounter
CPT/HCPCS: 36415; 70450; 71010; 80053; 80061; 82550; 83036; 83615; 83735; 84100; 84443; 84484; 85025; 85378; 85610; 85730; 93005; 93306; 99285; G0378; J1650; J2920; J7040

== ENCOUNTER 2017-12-09 09:56 | Emergency (ER) | payer MEDICARE, OTHER ==
[2017-12-09 09:57] VITALS: BMI 26.6
--- NOTE | 2017-12-09 10:27 | ED PDOC ---
Arrival/HPI - General Chief Complaint: Palpitations Time Seen by Provider: 12/09/17 10:02 Historian: Patient - History of Present Illness Narrative History of Present Illness (Text): 12/09/17 10:26 This is a 47 year old male with PMHx Lung CA s/p resection, COPD, pulmonary fibrosis who presents complaining of light headedness, and palpitation since waking up this morning. Patient also noted that his heart rate has been elevated for last week. Patient denies daniels, cp, abdominal pain, fever, urinary symptoms, diplopia, dysarthria, n/v, or abnormal gait. Time/Duration: Other (see hpi) Context: Home Past Medical History - Provider Review Nursing Documentation Reviewed: Yes - Infectious Disease Hx of Infectious Diseases: None - Cardiac Hx Cardiac Disorders: No - Pulmonary Hx Respiratory Disorders: Yes Hx Chronic Obstructive Pulmonary Disease (COPD): Yes - Neurological Hx Neurological Disorder: No - HEENT Hx HEENT Disorder: No - Renal Hx Renal Disorder: No - Endocrine/Metabolic Hx Endocrine Disorders: No - Hematological/Oncological Hx Blood Disorders: No - Integumentary Hx Dermatological Disorder: No - Musculoskeletal/Rheumatological Hx Musculoskeletal Disorders: No - Gastrointestinal Hx Gastrointestinal Disorders: No - Genitourinary/Gynecological Hx Genitourinary Disorders: No - Psychiatric Hx Psychophysiologic Disorder: Yes Hx Anxiety: Yes Hx Substance Use: Yes (MARIJUANA) - Anesthesia Hx Anesthesia: No Hx Anesthesia Reactions: No Hx Malignant Hyperthermia: No - Suicidal Assessment Feels Threatened In Home Enviroment: No Family/Social History - Physician Review Nursing Documentation Reviewed: Yes Family/Social History: Other (noncontributory) Smoking Status: Never Smoked Hx Alcohol Use: Yes (1-2 BEERS DAY) Frequency of alcohol use: Daily Hx Substance Use: Yes (MARIJUANA) Allergies/Home Meds Allergies/Adverse Reactions: Allergies No Known Allergies Allergy (Verified 12/09/17 19:53) Home Medications: Home Meds Medication Instructions Recorded Confirmed Nintedanib Esylate [Ofev] 150 mg PO DAILY 04/24/17 12/09/17 Aspirin [[place] Aspirin] 81 mg PO DAILY 05/09/17 12/09/17 Fluticasone/Vilanterol [Breo 1 each IH DAILY 05/09/17 12/09/17 Ellipta 100-25 Mcg INH] Folic Acid 1 mg PO DAILY 05/09/17 12/09/17 Atenolol [Tenormin] 12.5 mg PO DAILY 12/12/17 12/12/17 Review of Systems - Review of Systems Constitutional: Normal. absent: Fatigue, Weight Change, Fevers Eyes: Normal ENT: Normal Respiratory: SOB (chronic) Cardiovascular: Palpitations. absent: Chest Pain Gastrointestinal: Normal. absent: Abdominal Pain, Diarrhea, Nausea Genitourinary Male: Normal. absent: Dysuria, Frequency Musculoskeletal: Normal. absent: Back Pain, Neck Pain Skin: Normal Neurological: Dizziness. absent: Headache, Focal Weakness, Gait Changes, Speech Changes, Facial Droop, Disequilibrium Endocrine: Normal Hemo/Lymphatic: Normal Psychiatric: Normal Physical Exam Vital Signs Temp Pulse Resp BP Pulse Ox 12/09/17 12:35 98 F 87 20 151/97 H 96 12/09/17 10:01 97.5 F L 100 H 18 128/90 94 L 12/09/17 09:57 97.5 F L 100 H 18 128/90 94 L Temperature: Afebrile Blood Pressure: Normal Pulse: Regular Respiratory Rate: Normal Appearance: Positive for: Well-Appearing, Non-Toxic, Comfortable Pain Distress: None Mental Status: Positive for: Alert and Oriented X 3 - Systems Exam Head: Present: Atraumatic, Normocephalic Pupils: Present: PERRL Extroacular Muscles: Present: EOMI Conjunctiva: Present: Normal Mouth: Present: Moist Mucous Membranes Neck: Present: Normal Range of Motion Respiratory/Chest: Present: Good Air Exchange, Decreased Breath Sounds. No: Respiratory Distress, Accessory Muscle Use, Wheezes, Retracting, Rhonchi Cardiovascular: Present: Regular Rate and Rhythm, Normal S1, S2. No: Murmurs Abdomen: No: Tenderness, Distention, Peritoneal Signs Back: Present: Normal Inspection. No: CVA Tenderness Upper Extremity: Present: Normal Inspection, Normal ROM. No: Cyanosis, Edema Lower Extremity: Present: Normal Inspection, Normal ROM. No: Edema Neurological: Present: GCS=15, CN II-XII Intact, Speech Normal Skin: Present: Warm, Dry, Normal Color. No: Rashes Psychiatric: Present: Alert, Oriented x 3, Normal Insight, Normal Concentration Medical Decision Making ED Course and Treatment: 12/09/17 12:31 Patient was offered to be admitted for COPD exacerbation, but he declined Leaving Against Medical Advice (AMA): This patient is choosing to leave against medical advice. The EP has personally explained to the pt that choosing to do so may result in permanent bodily harm or . The EP discussed at great length that without further evaluation and monitoring there may be unforeseen circumstances and/or deterioration causing permanent bodily harm or as a result of their choice. The pt verbalized these risks back to the physician in laymans terms. The pt is alert, oriented, and shows the mental capacity to make clear decisions regarding the pts health care at this time. The pt continues to wish to leave against medical advice. In light of the pts decision to leave AMA, follow-up has been recommended and the pt is aware of the importance of following up as instructed. The pt has been advised that they should return to the ED immediately if they change their mind at any time, or if this condition begins to change or worsen in any way. Re-evaluation Time: 12:32 Reassessment Condition: Re-examined, Unchanged - Lab Interpretations Lab Results: 12/09/17 10:50 12/09/17 10:50 Lab Results 12/09/17 11:00: pCO2 40, pO2 66.0 L, HCO3 25.4, ABG pH 7.41, ABG Total CO2 26.6 , ABG O2 Saturation 96.2, ABG O2 Content 20.3, ABG Base Excess 0.7, ABG Hemoglobin 15.5, ABG Carboxyhemoglobin 1.8 H, POC ABG HHb (Measured) 3.7, ABG Methemoglobin 1.2, ABG O2 Capacity 21.1, Hgb O2 Saturation 93.2 L, FiO2 21.0 12/09/17 10:50: D-Dimer, Quantitative < 200 12/09/17 10:50: Sodium 139, Potassium 3.9, Chloride 100, Carbon Dioxide 26, Anion Gap 17, BUN 8, Creatinine 0.8, Est GFR ( Amer) > 60, Est GFR (Non- Af Amer) > 60, Random Glucose 136 H, Calcium 9.4, Magnesium 1.7, Total Bilirubin 0.9, AST 27, ALT 16, Alkaline Phosphatase 81, Lactate Dehydrogenase 459, Total Creatine Kinase 152, Troponin I 0.04 D, NT-Pro-B Natriuret Pep < 11.1, Total Protein 7.2, Albumin 4.3, Globulin 2.8, Albumin/Globulin Ratio 1.5 12/09/17 10:50: WBC 6.1, RBC 5.37, Hgb 15.6 D, Hct 45.7, MCV 85.1 D, MCH 29.1 , MCHC 34.1, RDW 15.3 H, Plt Count 216, MPV 10.7, Gran % 67.9, Lymph % (Auto) 18.1 L, [place] % (Auto) 10.7 H, Eos % (Auto) 3.1, Baso % (Auto) 0.2, Gran # 4.12, Lymph # (Auto) 1.1 L, [place] # (Auto) 0.7 H, Eos # (Auto) 0.2, Baso # (Auto) 0.01 I have reviewed the lab results: Yes Interpretation: Abnormal lab values (pO2 was low) - RAD Interpretation Radiology Orders: 12/09/17 10:33 CHEST ONE VIEW [RAD] Stat 12/09/17 10:36 HEAD W/O CONTRAST [CT] Stat - EKG Interpretation Interpreted by ED Physician: Yes (NSR @ [address] changes) Type: 12 lead EKG Comparison: Similar to previous EKG - Medication Orders Current Medication Orders: Discontinued Medications Albuterol/Ipratropium (Duoneb 3 Mg/0.5 Mg (3 Ml) Ud) 3 ml IH STAT STA Stop: 12/09/17 10:33 Last Admin: 12/09/17 10:40 Dose: 3 ml Disposition/Present on Arrival - Present on Arrival Any Indicators Present on Arrival: No History of DVT/PE: No History of Uncontrolled Diabetes: No Urinary Catheter: No History of Decub. Ulcer: No History Surgical Site Infection Following: None - Disposition Have Diagnosis and Disposition been Completed?: Yes Diagnosis: Palpitation, Dizziness, COPD exacerbation Disposition: AGAINST MEDICAL ADVICE Disposition Time: 12:34 Condition: UNKNOWN Additional Instructions: RETURN TO EMERGENCY AT ANY TIME FOR WORSENING OF SYMPTOMS. Forms: Trampoline (Serbian)
[2017-12-09] MEDS ORDERED: Albuterol-Ipratrop 3 mg / 0.5 (3 ml) UD IH STA (10:32)
[2017-12-09 10:58] LABS: BASO # 0.01 K/mm3 (0.0-2.0); BASO % 0.2 % (0.0-3.0); EOS # 0.2 (0.0-0.7); EOS % 3.1 % (1.5-5.0); GRAN # 4.12 (1.4-6.5); GRAN % 67.9 % (50.0-68.0); HEMOGLOBIN 15.6 g/dL (14.0-18.0); LYMPH # 1.1 (1.2-3.4); LYMPH % 18.1 % (22.0-35.0); MEAN CELL VOLUME 85.1 fl (80.0-105.0); MEAN CORPUSCULAR HEMOGLOBIN 29.1 pg (25.0-35.0); MEAN CORPUSCULAR HGB CONC 34.1 g/dl (31.0-37.0); MEAN PLATELET VOLUME 10.7 fl (7.0-11.0); MONO # 0.7 (0.1-0.6); MONO % 10.7 % (1.0-6.0); RBC 5.37 10^6/uL (3.5-6.1); RED CELL DISTRIBUTION WIDTH 15.3 % (11.5-14.5); WHITE BLOOD COUNT 6.1 10^3/ul (4.5-11.0)
[2017-12-09 11:09] LABS: ALB/GLOB RATIO 1.5 (1.1-1.8); ALBUMIN 4.3 g/dL (3.0-4.8); ALT/SGPT 16 U/L (7-56); AST/SGOT 27 U/L (17-59); BLOOD UREA NITROGEN 8 mg/dL (7-21); CALCIUM 9.4 mg/dL (8.4-10.5); GFR AFRICAN-AMERICAN > 60; GFR NON-AFRICAN AMERICAN > 60
[2017-12-09 11:13] LABS: ARTERIAL BLOOD GAS HCO3 25.4 mmol/L (21-28); ARTERIAL BLOOD GAS HEMOGLOBIN 15.5 g/dL (11.7-17.4); ARTERIAL BLOOD GAS O2 CAPACITY 21.1 mL/dl (16-24); ARTERIAL BLOOD GAS O2 CONTENT 20.3 ML/dl (15-23); ARTERIAL BLOOD GAS O2 SAT 96.2 % (95-98); ARTERIAL BLOOD GAS PCO2 40 mm/Hg (35-45); ARTERIAL BLOOD GAS PH 7.41 (7.35-7.45); ARTERIAL BLOOD GAS TCO2 26.6 mmol.L (22-28)
[2017-12-09 11:21] LABS: TROPONIN I 0.04 ng/mL
--- NOTE | 2017-12-09 11:48 | CT ---
PROCEDURE: CT HEAD WITHOUT CONTRAST. HISTORY: dizziness COMPARISON: 04/24/2017 TECHNIQUE: Axial computed tomography images were obtained through the head/brain without intravenous contrast. Coronal and sagittal reconstructed images. Radiation dose: Total exam DLP = 897.57 mGy-cm. This CT exam was performed using one or more of the following dose reduction techniques: Automated exposure control, adjustment of the mA and/or kV according to patient size, and/or use of iterative reconstruction technique. FINDINGS: HEMORRHAGE: No intracranial hemorrhage. BRAIN: No mass effect or edema. No atrophy or chronic microvascular ischemic changes. VENTRICLES: Unremarkable. No hydrocephalus. CALVARIUM: Unremarkable. PARANASAL SINUSES: Unremarkable as visualized. No significant inflammatory changes. Incidental finding(s): Mucous retention cyst left maxillary sinus. MASTOID AIR CELLS: Unremarkable as visualized. No inflammatory changes. OTHER FINDINGS: None. IMPRESSION: No acute intracranial abnormalities. No significant findings to account for the clinical presentation. No significant interval change compared to the prior examination(s).
[2017-12-09 11:50] LABS: B-TYPE NATRIURETIC PEPTIDE < 11.1 pg/mL (0-450)
--- NOTE | 2017-12-09 11:58 | RAD ---
PROCEDURE: CHEST RADIOGRAPH, 1 VIEW HISTORY: palpitation COMPARISON: 11/08/2017 FINDINGS: LUNGS: Clear. PLEURA: No pneumothorax or pleural fluid seen. CARDIOVASCULAR: Normal. OSSEOUS STRUCTURES: No significant abnormalities. VISUALIZED UPPER ABDOMEN: Normal. OTHER FINDINGS: Left-sided central line terminates at the caval atrial junction IMPRESSION: No active disease.
[2017-12-09 12:36] VITALS: BP 151/97; PULSE 87; RESP 20; TEMP 98; O2SAT 96
--- NOTE | 2017-12-09 18:52 | CARD ---
APPROVED REPORT EKG Measurement Heart [id number] 170P32 [id number] <Conclusion> Normal sinus rhythm Normal ECG
== END 2017-12-09 12:37 | disposition left against medical advice (07) ==
LOC: ED 09:56
DX: J44.1 Chronic obstructive pulmonary disease with (acute) exacerbation (principal); R00.2 Palpitations; R42 Dizziness and giddiness; Z85.118 Personal history of other malignant neoplasm of bronchus and lung

== ENCOUNTER 2017-12-09 19:35 | Inpatient (IN) | payer MEDICARE, OTHER ==
[2017-12-09 19:53] VITALS: BMI 26.5
--- NOTE | 2017-12-09 20:27 | ED PDOC ---
Arrival/HPI - General Chief Complaint: Dizziness/Lightheaded Time Seen by Provider: 12/09/17 19:55 Historian: Patient - History of Present Illness Narrative History of Present Illness (Text): 12/09/17 20:22 pt p/w + ~ 1 day onset of persistent dizziness/lightheadedness/NO LOC but feeling close to it; + persistent palpitations, noted HR > 150 at one point; pt also noted + persistent weakness, no fever/chills/sweats, no cp/abd pain, no n/v , no numbness/tingling, no urinary/bowel changes; pt states he was seen earlier/ and was treated and recommended for admission at [place] [facility] but refused and went home and now he is back, and states he changed his mind. pt denied other complaints pt is here for further eval. PCP: Dr Rodriguez pt is right hand dominate prior hx of right lung cancer (s/p chemo and lobectomy) Time/Duration: 24 hours Symptom Onset: Sudden Symptom Course: Unchanged Activities at Onset: Rest Context: Home Past Medical History - Provider Review Nursing Documentation Reviewed: Yes - Travel History Have you recently traveled outside [place] w/in the past 3 mons?: No - Past History Past History: No Previous - Infectious Disease Hx of Infectious Diseases: None - Tetanus Immunization Tetanus Immunization: Unknown - Cardiac Hx Cardiac Disorders: No - Pulmonary Hx Respiratory Disorders: Yes Hx Chronic Obstructive Pulmonary Disease (COPD): Yes - Neurological Hx Neurological Disorder: No - HEENT Hx HEENT Disorder: No - Renal Hx Renal Disorder: No - Endocrine/Metabolic Hx Endocrine Disorders: No - Hematological/Oncological Hx Blood Disorders: No - Integumentary Hx Dermatological Disorder: No - Musculoskeletal/Rheumatological Hx Musculoskeletal Disorders: No - Gastrointestinal Hx Gastrointestinal Disorders: No - Genitourinary/Gynecological Hx Genitourinary Disorders: No - Psychiatric Hx Psychophysiologic Disorder: Yes Hx Anxiety: Yes Hx Substance Use: Yes (MARIJUANA) - Anesthesia Hx Anesthesia: No Hx Anesthesia Reactions: No Hx Malignant Hyperthermia: No - Suicidal Assessment Feels Threatened In Home Enviroment: No Family/Social History - Physician Review Nursing Documentation Reviewed: Yes Family/Social History: No Known Family HX Smoking Status: Never Smoked Hx Alcohol Use: Yes (1-2 BEERS DAY) Hx Substance Use: Yes (MARIJUANA) Allergies/Home Meds Allergies/Adverse Reactions: Allergies No Known Allergies Allergy (Verified 12/09/17 19:53) Home Medications: Home Meds Medication Instructions Recorded Confirmed Nintedanib Esylate [Ofev] 150 mg PO DAILY 04/24/17 12/09/17 Aspirin [[place] Aspirin] 81 mg PO DAILY 05/09/17 12/09/17 Fluticasone/Vilanterol [Breo 1 each IH DAILY 05/09/17 12/09/17 Ellipta 100-25 Mcg INH] Folic Acid 1 mg PO DAILY 05/09/17 12/09/17 Review of Systems - Review of Systems Constitutional: Normal Eyes: Normal ENT: Normal Respiratory: Normal Cardiovascular: Palpitations Gastrointestinal: Normal Genitourinary Male: Normal Musculoskeletal: Normal Skin: Normal Neurological: Dizziness. absent: Headache Endocrine: Normal Hemo/Lymphatic: Normal Psychiatric: Normal Physical Exam Vital Signs Reviewed: Yes Vital Signs Temp Pulse Resp BP Pulse Ox 12/09/17 20:00 98 F 88 18 130/58 L 100 Temperature: Afebrile Blood Pressure: Normal Pulse: Regular Respiratory Rate: Normal Appearance: Positive for: Well-Appearing, Non-Toxic, Uncomfortable, Other ( mildly uncomfortable, resting in bed, alert/awake, GCS = 15, oriented x 3, NAD, cooperative, follows command with ease) Pain Distress: None Mental Status: Positive for: Alert and Oriented X 3 - Systems Exam Head: Present: Atraumatic, Normocephalic Pupils: Present: PERRL, Other (no nystagmus, no photophobia, sclera anicteric, wearing eye glasses; visual field intact b/l) Extroacular Muscles: Present: EOMI Conjunctiva: Present: Normal Ears: Present: Normal Mouth: Present: Moist Mucous Membranes, Normal Teeth, Other (uvula/tongue are midline, no exudate/lesions, no drooling/stridor, no dysphonia) Pharnyx: Present: Normal Nose (External): Present: Atraumatic Nose (Internal): Present: Normal Inspection Neck: Present: Normal Range of Motion, Trachea Midline, Other (no nuchal rigidity). No: Meningeal Signs, MIDLINE TENDERNESS, Paraspinal Tenderness Respiratory/Chest: Present: Good Air Exchange, Decreased Breath Sounds, Other ( + coarse breath sounds noted, right >> left; decr BS noted right sided (hx of lung cancer); no w/r/r, no tachypenia/accessory muscle use noted) Cardiovascular: Present: Regular Rate and Rhythm, Normal S1, S2. No: Murmurs Abdomen: Present: Normal Bowel Sounds, Other (well nourished male, no focal tenderness, no masses/rebound/guarding/rigidity; no andino's sign, no mcburney' s point tenderness) Back: Present: Normal Inspection, Other (no midline tenderness). No: CVA Tenderness, Midline Tenderness, Paraspinal Tenderness Upper Extremity: Present: Normal Inspection, Normal ROM, NORMAL PULSES, Neurovascularly Intact. No: Deformity Lower Extremity: Present: Normal Inspection, NORMAL PULSES, Normal ROM, Neurovascularly Intact. No: Tenderness, Swelling, Deformity Neurological: Present: GCS=15, CN II-XII Intact, Speech Normal, Other (CNII-XII WNL, no facial asymmetries, no slurr speech, NIH stroke scale ~ 0) Skin: Present: Warm, Normal Color, Other (cap refill < 1sec, no ulcerations, no petechiae, no rashes/pallor) Psychiatric: Present: Alert, Oriented x 3 Medical Decision Making ED Course and Treatment: 12/09/171939 Impression: near syncope/palpitations i have consider all the differential diagnosis regarding pt's chief medical complaints/clinical findings, including but are not limited to: near syncope/ palpitations A/P: near syncope/palpitations - labs - acs eval - iv - supportive care - observe/reevaluation 12/09/172044 Dr Nihcols contacted, 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 Dr Rodriguez, made aware of pt's medical presentation, agrees with ED mgt/txt, agrees with admission; would like to consult Dr Sanders/Dr Adamson pt remained chest pain free pt is made aware of his medical results pt agrees with admission Re-evaluation Time: 21:15 Reassessment Condition: Improving,but remains with symptoms - Lab Interpretations I have reviewed the lab results: Yes Interpretation: All labs normal - RAD Interpretation Narrative RAD Interpretations (Text): 12/09/17 21:12 previous CXR - NAD previous CT HEAD - no acute findings Em Physician: Radiologist - EKG Interpretation EKG Interpretation (Text): 12/09/17 21:13 NSR at 90 bpm, normal axis, no ectopy, qs in leads III/F, no st changes, ABNL EKG; unchanged compare with old ekg 04/2017 Interpreted by ED Physician: Yes Type: 12 lead EKG Comparison: Similar to previous EKG - Medication Orders Current Medication Orders: Aspirin (Aspirin Chewable) 81 mg PO DAILY [facility] Folic Acid (Folic Acid) 1 mg PO DAILY [facility] Sodium Chloride (Sodium Chloride 0.9%) 1,000 mls @ 150 mls/hr IV .Q6H40M [facility] Last Admin: 12/09/17 21:01 Dose: 150 mls/hr eMAR Start Stop Document 12/09/17 21:01 IT (Rec: 12/09/17 21:01 IT [id number]) Intravenous Solution Start Date 12/09/17 Start Time 21:01 Non-Formulary Medication (Fluticasone/Vilanterol [Breo Ellipta 100-25 Mcg Inh]) 1 each IH DAILY [facility] Non-Formulary Medication (Nintedanib Esylate [Ofev]) 150 mg PO DAILY [facility] Disposition/Present on Arrival - Present on Arrival Any Indicators Present on Arrival: No History of DVT/PE: No History of Uncontrolled Diabetes: No Urinary Catheter: No History of Decub. Ulcer: No History Surgical Site Infection Following: None - Disposition Have Diagnosis and Disposition been Completed?: Yes Diagnosis: Near syncope, Palpitations Disposition: HOSPITALIZED Disposition Time: 21:15 Patient Plan: Admission, Telemetry Patient Problems: Current Active Problems Problem Status Onset Palpitations Acute Near syncope Acute Condition: STABLE
[2017-12-09] MEDS: Sodium Chloride 0.9% 1,000 ML IV SCH (21:01)
[2017-12-09 21:09] LABS: BASO # 0.02 K/mm3 (0.0-2.0); BASO % 0.3 % (0.0-3.0); EOS # 0.2 (0.0-0.7); EOS % 2.9 % (1.5-5.0); GRAN # 4.51 (1.4-6.5); GRAN % 61.4 % (50.0-68.0); HEMOGLOBIN 15.9 g/dL (14.0-18.0); LYMPH # 1.8 (1.2-3.4); LYMPH % 24.4 % (22.0-35.0); MEAN CELL VOLUME 85.1 fl (80.0-105.0); MEAN PLATELET VOLUME 11.4 fl (7.0-11.0); MONO # 0.8 (0.1-0.6); RBC 5.49 10^6/uL (3.5-6.1); RED CELL DISTRIBUTION WIDTH 15.2 % (11.5-14.5); WHITE BLOOD COUNT 7.3 10^3/ul (4.5-11.0)
[2017-12-09 21:24] LABS: TROPONIN I < 0.01 ng/mL
[2017-12-09 21:40] LABS: ALB/GLOB RATIO 1.4 (1.1-1.8); ALBUMIN 4.4 g/dL (3.0-4.8); ALT/SGPT 26 U/L (7-56); AST/SGOT 27 U/L (17-59); BLOOD UREA NITROGEN 10 mg/dL (7-21); CALCIUM 9.3 mg/dL (8.4-10.5); GFR AFRICAN-AMERICAN > 60; GFR NON-AFRICAN AMERICAN > 60
[2017-12-10] MEDS ORDERED: NINTEDANIB ESYLATE 150 MG PO SCH (10:00)
[2017-12-10] MEDS ORDERED: VILANTEROL IH SCH (10:00)
[2017-12-10] MEDS ORDERED: FLUTICASONE IH SCH (10:00)
--- NOTE | 2017-12-10 10:24 | CP.PCM.CON ---
History of Present Illness - History of Present Illness History of Present Illness: Lying in bed,awake,no distress, denies chest pain, denies shortness of breath Reason for consultation: Cardiac evaluation, persistent lightheadedness/ dizziness,palpitations, history of right lung cancer with lobectomy Brief history of present illness: A 47 year old male who came in to the ER due to persistent dizziness and lightheadedness associated with palpitations. Denies loss of consciousness. also complaints of persistent feeling of weakness. History of COPD, anxiety,former smoker, marijuana use.history of right lung cancer with lobectomy. Seen and examined by me and Dr. Sanders Review of Systems - Constitutional Constitutional: As Per HPI, Weakness - Cardiovascular Cardiovascular: Palpitations - Respiratory Additional comments: denies shortness of breath - Genitourinary Additional comments: denies any problems - Neurological Additional comments: lightheadedness - Psychiatric Psychiatric: Anxiety - Endocrine Additional Comments: denies any problems Past Patient History - Infectious Disease Hx of Infectious Diseases: None - Tetanus Immunizations Tetanus Immunization: Unknown - Past Social History Smoking Status: Former Smoker - CARDIAC Hx Cardiac Disorders: No - PULMONARY Hx Respiratory Disorders: Yes Hx Chronic Obstructive Pulmonary Disease (COPD): Yes - NEUROLOGICAL Hx Neurological Disorder: No - HEENT Hx HEENT Problems: No - RENAL Hx Chronic Kidney Disease: No - ENDOCRINE/METABOLIC Hx Endocrine Disorders: No - HEMATOLOGICAL/ONCOLOGICAL Hx Blood Disorders: No - INTEGUMENTARY Hx Dermatological Problems: No - MUSCULOSKELETAL/RHEUMATOLOGICAL Hx Falls: No - GASTROINTESTINAL Hx Gastrointestinal Disorders: No - GENITOURINARY/GYNECOLOGICAL Hx Genitourinary Disorders: No - PSYCHIATRIC Hx Psychophysiologic Disorder: Yes Hx Anxiety: Yes Hx Substance Use: Yes (MARIJUANA) - SURGICAL HISTORY Hx Surgeries: No - ANESTHESIA Hx Anesthesia: No Hx Anesthesia Reactions: No Hx Malignant Hyperthermia: No Meds Allergies/Adverse Reactions: Allergies Allergy/AdvReac Type Severity Reaction Status Date / Time No Known Allergies Allergy Verified 12/09/17 19:53 - Medications Medications: Current Medications Aspirin (Aspirin Chewable) 81 mg PO DAILY [facility] Folic Acid (Folic Acid) 1 mg PO DAILY [facility] Sodium Chloride (Sodium Chloride 0.9%) 1,000 mls @ 150 mls/hr IV .Q6H40M [facility] Last Admin: 12/09/17 21:01 Dose: 150 mls/hr Non-Formulary Medication (Fluticasone/Vilanterol [Breo Ellipta 100-25 Mcg Inh]) 1 each IH DAILY [facility] Non-Formulary Medication (Nintedanib Esylate [Ofev]) 150 mg PO DAILY [facility] Physical Exam - Constitutional Appears: No Acute Distress - Eye Exam Eye Exam: Normal appearance - ENT Exam ENT Exam: Mucous Membranes Moist - Respiratory Exam Respiratory Exam: Decreased Breath Sounds, Clear to Auscultation Bilateral, NORMAL BREATHING PATTERN - Cardiovascular Exam Cardiovascular Exam: +S1, +S2 Additional comments: Telemetry NSR 70's - GI/Abdominal Exam GI & Abdominal Exam: Normal Bowel Sounds, Soft - Extremities Exam Extremities exam: Positive for: normal capillary refill - Neurological Exam Neurological exam: Alert, Normal Gait, Oriented x3 - Psychiatric Exam Psychiatric exam: Normal Affect, Normal Mood - Skin Skin Exam: Intact, Normal Color, Warm Results - Vital Signs Recent Vital Signs: Last Vital Signs Temp 98.2 F 12/10/17 00:33 Pulse 81 12/10/17 00:33 Resp 17 12/10/17 00:33 BP 135/76 12/10/17 00:33 Pulse Ox 98 12/10/17 00:19 - Labs Result Diagrams: 12/09/17 20:54 12/09/17 20:54 Labs: Laboratory Results - last 24 hr 12/09/17 12/09/17 12/09/17 20:54 20:54 20:54 WBC 7.3 RBC 5.49 Hgb 15.9 Hct 46.7 MCV 85.1 MCH 29.0 MCHC 34.0 RDW 15.2 H Plt Count 238 MPV 11.4 H Gran % 61.4 Lymph % (Auto) 24.4 [place] % (Auto) 11.0 H Eos % (Auto) 2.9 Baso % (Auto) 0.3 Gran # 4.51 Lymph # (Auto) 1.8 [place] # (Auto) 0.8 H Eos # (Auto) 0.2 Baso # (Auto) 0.02 Sodium 138 Potassium 3.8 Chloride 100 Carbon Dioxide 25 Anion Gap 17 BUN 10 Creatinine 1.0 Est GFR ( Amer) > 60 Est GFR (Non-Af Amer) > 60 Random Glucose 97 Calcium 9.3 Total Bilirubin 1.3 AST 27 ALT 26 Alkaline Phosphatase 86 Troponin I < 0.01 D Total Protein 7.5 Albumin 4.4 Globulin 3.1 Albumin/Globulin Ratio 1.4 TSH 3rd Generation 1.89 Assessment & Plan - Assessment and Plan (Free Text) Assessment: A 47 year old male who came in to the ER due to persistent dizziness and lightheadedness associated with palpitations. Denies loss of consciousness. also complaints of persistent feeling of weakness. History of COPD, anxiety, former smoker, marijuana use. Review of work up: 05/09/17- Stress test done here at [facility]- normal results 04/25/17-Echocardiogram done- LVEF 55-60% Trace MR/TR 12/09/17- Head CT-normal, no hemorrhage 12/09/17-Chest Xray- normal Plan: Previous cardiac work up negative for any myocardial ischemia Palpitations/increased heart rate maybe secondary to anxiety ? recent use of marijuana Will order carotid study to rule out carotid occlusion TSH normal to rule out hypothyroidism On ASA 81 mg daily Controlled heart rate now, Telemetry NSR 70's Will add betablocker if becomes tachycardic Smoking cessation Continue current treatment Continue current medications Will follow up Plan and treatment discussed with Dr. Sanders Thank you for giving us the opportunity to take care of Mr. Ralph Meyer - Date & Time Date: 12/10/17 Time: 06:55
[2017-12-10] MEDS: Sodium Chloride 0.9% 1,000 ML IV SCH ×2 (10:45→18:34)
[2017-12-10] MEDS: Albuterol-Ipratrop 3 mg / 0.5 (3 ml) UD IH SCH ×3 (17:37→23:42)
--- NOTE | 2017-12-10 17:56 | CARD ---
APPROVED REPORT EKG Measurement Heart [id number] 170P41 [id number] <Conclusion> Normal sinus rhythm Possible Left atrial enlargement Borderline ECG
[2017-12-10 21:22] LABS: TROPONIN I < 0.01 ng/mL
[2017-12-10] MEDS: MethylPREDNISolone 40 mg Vial IVP SCH (21:51)
[2017-12-10 22:53] LABS: URINE BILIRUBIN NEGATIVE (NEGATIVE); URINE BLOOD NEGATIVE (NEGATIVE); URINE GLUCOSE (UA) NEGATIVE (NEGATIVE); URINE LEUKOCYTE ESTERASE NEGATIVE Leu/uL (NEGATIVE); URINE PROTEIN NEGATIVE mg/dL (<30 mg/dL); URINE UROBILINOGEN 0.2 E.U./dL (<1 E.U./dL)
[2017-12-10 22:54] LABS: URINE APPEARANCE CLEAR (CLEAR); URINE COLOR YELLOW (YELLOW)
[2017-12-11] MEDS: Albuterol-Ipratrop 3 mg / 0.5 (3 ml) UD IH SCH ×4 (01:07→19:28)
[2017-12-11] MEDS: Sodium Chloride 0.9% 1,000 ML IV SCH ×5 (01:30→13:59)
--- NOTE | 2017-12-11 04:05 | CP.PCM.PN ---
Subjective - Date & Time of Evaluation Date of Evaluation: 12/11/17 Time of Evaluation: 04:01 - Subjective Subjective: Patient was seen at bedside. Patient was seen for lightheadedness. BP 147/92. Had little nausea earlier.Feels anxious. Has no other complaints. Denies headache, dizziness, chest pain, sob. Gives history of anxiety,being on steroid. Medical record was reviewed. This 47 year old male is admitted with persistent dizziness, lightheadedness, palpitation, weakness. Has PMH of syncope,dizziness, lung cancer, lung biopsy, lobectomy, insertion of port-a-cath, smoker,anxiety, alcohol use, marijuana use. Objective - Vital Signs/Intake and Output Vital Signs (last 24 hours): Temp Pulse Resp BP Pulse Ox 98.0 F 77 20 136/91 H 99 12/10/17 23:33 12/10/17 23:33 12/10/17 23:33 12/10/17 23:33 12/10/17 23:33 Intake and Output: 12/10/17 12/11/17 18:59 06:59 Output Total 0 Balance 0 - Medications Medications: Current Medications Acetylcysteine (Acetylcysteine 20%) 3 ml INH BIDRESP [facility] Albuterol/Ipratropium (Duoneb 3 Mg/0.5 Mg (3 Ml) Ud) 3 ml IH [id number] [facility] Last Admin: 12/11/17 01:07 Dose: Not Given Aspirin (Aspirin Chewable) 81 mg PO DAILY [facility] Last Admin: 12/10/17 10:29 Dose: 81 mg Doxycycline Hyclate (Doryx) 100 mg PO Q12 [facility] PRN Reason: Protocol Last Admin: 12/10/17 21:51 Dose: 100 mg Enoxaparin Sodium (Lovenox) 30 mg SC DAILY [facility] PRN Reason: Protocol Folic Acid (Folic Acid) 1 mg PO DAILY [facility] Last Admin: 12/10/17 10:29 Dose: Not Given Sodium Chloride (Sodium Chloride 0.9%) 1,000 mls @ 150 mls/hr IV .Q6H40M [facility] Last Admin: 12/11/17 01:30 Dose: 150 mls/hr Methylprednisolone (Solu-Medrol) 40 mg IVP Q12 [facility] Last Admin: 12/10/17 21:51 Dose: 40 mg Non-Formulary Medication (Fluticasone/Vilanterol [Breo Ellipta 100-25 Mcg Inh]) 1 each IH DAILY [facility] Non-Formulary Medication (Nintedanib Esylate [Ofev]) 150 mg PO DAILY [facility] - Labs Labs: 12/09/17 20:54 12/09/17 20:54 Most Recent Lab Values WBC 7.3 10^3/ul (4.5-11.0) 12/09/17 20:54 RBC 5.49 10^6/uL (3.5-6.1) 12/09/17 20:54 Hgb 15.9 g/dL (14.0-18.0) 12/09/17 20:54 Hct 46.7 % (42.0-52.0) 12/09/17 20:54 MCV 85.1 fl (80.0-105.0) 12/09/17 20:54 MCH 29.0 pg (25.0-35.0) 12/09/17 20:54 MCHC 34.0 g/dl (31.0-37.0) 12/09/17 20:54 RDW 15.2 % (11.5-14.5) H 12/09/17 20:54 Plt Count 238 10^3/uL (120.0-450.0) 12/09/17 20:54 MPV 11.4 fl (7.0-11.0) H 12/09/17 20:54 Gran % 61.4 % (50.0-68.0) 12/09/17 20:54 Lymph % (Auto) 24.4 % (22.0-35.0) 12/09/17 20:54 [place] % (Auto) 11.0 % (1.0-6.0) H 12/09/17 20:54 Eos % (Auto) 2.9 % (1.5-5.0) 12/09/17 20:54 Baso % (Auto) 0.3 % (0.0-3.0) 12/09/17 20:54 Gran # 4.51 (1.4-6.5) 12/09/17 20:54 Lymph # (Auto) 1.8 (1.2-3.4) 12/09/17 20:54 [place] # (Auto) 0.8 (0.1-0.6) H 12/09/17 20:54 Eos # (Auto) 0.2 (0.0-0.7) 12/09/17 20:54 Baso # (Auto) 0.02 K/mm3 (0.0-2.0) 12/09/17 20:54 Sodium 138 mmol/L (132-148) 12/09/17 20:54 Potassium 3.8 mmol/L (3.6-5.0) 12/09/17 20:54 Chloride 100 mmol/L (98-107) 12/09/17 20:54 Carbon Dioxide 25 mmol/L (21-33) 12/09/17 20:54 Anion Gap 17 (10-20) 12/09/17 20:54 BUN 10 mg/dL (7-21) 12/09/17 20:54 Creatinine 1.0 mg/dl (0.8-1.5) 12/09/17 20:54 Est GFR ( Amer) > 60 12/09/17 20:54 Est GFR (Non-Af Amer) > 60 12/09/17 20:54 Random Glucose 97 mg/dL (70-110) 12/09/17 20:54 Calcium 9.3 mg/dL (8.4-10.5) 12/09/17 20:54 Total Bilirubin 1.3 mg/dL (0.2-1.3) 12/09/17 20:54 AST 27 U/L (17-59) 12/09/17 20:54 ALT 26 U/L (7-56) 12/09/17 20:54 Alkaline Phosphatase 86 U/L (38-126) 12/09/17 20:54 Lactate Dehydrogenase 407 U/L (333-699) 12/10/17 20:49 Total Creatine Kinase 124 U/L (35-230) 12/10/17 20:49 Troponin I < 0.01 ng/mL 12/10/17 20:49 Total Protein 7.5 g/dL (5.8-8.3) 12/09/17 20:54 Albumin 4.4 g/dL (3.0-4.8) 12/09/17 20:54 Globulin 3.1 gm/dL 12/09/17 20:54 Albumin/Globulin Ratio 1.4 (1.1-1.8) 12/09/17 20:54 TSH 3rd Generation 1.89 mIU/mL (0.46-4.68) 12/09/17 20:54 Urine Color Yellow (YELLOW) 12/10/17 21:15 Urine Appearance Clear (CLEAR) 12/10/17 21:15 Urine pH 6.0 (4.7-8.0) 12/10/17 21:15 Ur Specific [place] <= 1.005 (1.005-1.035) 12/10/17 21:15 Urine Protein Negative mg/dL (<30 mg/dL) 12/10/17 21:15 Urine Glucose (UA) Negative mg/dL (NEGATIVE) 12/10/17 21:15 Urine Ketones Negative mg/dL (NEGATIVE) 12/10/17 21:15 Urine Blood Negative (NEGATIVE) 12/10/17 21:15 Urine Nitrate Negative (NEGATIVE) 12/10/17 21:15 Urine Bilirubin Negative (NEGATIVE) 12/10/17 21:15 Urine Urobilinogen 0.2 E.U./dL (<1 E.U./dL) 12/10/17 21:15 Ur Leukocyte Esterase Negative [place]/uL (NEGATIVE) 12/10/17 21:15 - Constitutional Appears: Well, No Acute Distress - Head Exam Head Exam: ATRAUMATIC, NORMAL INSPECTION, NORMOCEPHALIC Additional comments: Sitting in a chair. - Eye Exam Eye Exam: Normal appearance - ENT Exam ENT Exam: Normal External Ear Exam - Neck Exam Neck Exam: Normal Inspection - Respiratory Exam Respiratory Exam: NORMAL BREATHING PATTERN - Cardiovascular Exam Cardiovascular Exam: absent: JVD - GI/Abdominal Exam GI & Abdominal Exam: absent: Distended - Rectal Exam Rectal Exam: Deferred - Exam Additional comments: Deferred. - Extremities Exam Extremities Exam: Normal Inspection - Back Exam Back Exam: NORMAL INSPECTION - Neurological Exam Neurological Exam: Alert, Awake, Oriented x3 - Psychiatric Exam Psychiatric exam: Normal Affect, Normal Mood - Skin Skin Exam: Normal Color Assessment and Plan - Assessment and Plan (Free Text) Assessment: Elevated blood pressure reading. Lightheadedness. Dizziness. Palpitation. History of lung cancer. Anxiety. Smoker. Plan: Xanax 0.5mg PO x 1. If lightheadedness/dizziness continue, will give antivert. Continue present management.
--- NOTE | 2017-12-11 04:33 | CON ---
DATE: PULMONARY CONSULTATION REFERRING PHYSICIAN: April Nichols MD. REASON FOR CONSULTATION: Cough, shortness of breath, chronic lung disease, history of lung cancer. HISTORY OF PRESENT ILLNESS: This is a 47-year-old gentleman with past medical history significant for lung cancer, chronic obstructive lung disease, pulmonary fibrosis and polycythemia, comes in with cough, shortness of breath, palpitation. No hemoptysis, no hematemesis, no hematuria, no diarrhea reported. PAST MEDICAL HISTORY: Chronic obstructive lung disease, pulmonary fibrosis, history of lung cancer, secondary polycythemia. ALLERGIES: NONE KNOWN. SOCIAL HISTORY: Recently stopped smoking. Denied any alcohol use. FAMILY HISTORY: No significant cardiopulmonary disease reported. MEDICATIONS: He is on aspirin 81 mg daily, DuoNeb every 6 hours [id number], Breo Ellipta 1 puff daily, folic acid 1 mg daily. He is on Ofev 150 mg daily and IV fluid normal saline 150 mL per hour. REVIEW OF SYSTEMS: No headache. Has some rhinitis, cough, sputum production. pain. No nausea. No vomiting. No diarrhea. No leg pain or leg swelling. Admits to have snoring at nighttime, daytime sleepy and tired. PHYSICAL EXAMINATION: VITAL SIGNS: Temperature is 98, heart rate 58, respiratory rate is 20, blood pressure 128/75, pulse ox 98% on room air. HEENT: Moist mucous membrane. Crowded airway. NECK: Supple. No JVD. LUNGS: Have crackles at the bases. Prolonged expiratory phase with wheezing. HEART: S1 and S2. ABDOMEN: Soft, nontender. No organomegaly. EXTREMITIES: There is no edema. NEUROLOGIC: Awake, alert. Follows simple command. LABORATORY DATA: Shows hemoglobin 15.9, hematocrit 46.7, WBC 7.3, platelet is 238. INR 1.01. PTT 27, D-dimer is 0.40. Sodium 138, potassium 3.8, chloride 100, bicarbonate 25, BUN 10, creatinine is 1 and calcium 9.3. Total bili 1.3. AST 27, ALT 26, alk phos is 86. Albumin is 4.4. TSH 1.89. Had EKG done on admission, shows normal sinus rhythm, possible left atrial enlargement. Had echocardiogram done on 04/25/2017, which was unremarkable, good LV function. Latest PET scan shows bronchiectasis, pneumonitis. IMPRESSION AND PLAN: Chronic obstructive lung disease, history of lung cancer, secondary polycythemia, also had a history of lung resection in the past, been on chemotherapy; also carried diagnosis of pulmonary fibrosis, been on Ofev 150 mg daily. Pulmonary point of view, I will add IV and inhaled bronchodilator, add doxycycline 100 mg twice a day. Recommend sleep study upon discharge as outpatient, also need PFT to assess lung function. Gastric and deep venous thrombosis prophylaxis. Thank you and we will follow with you. Siddharth Jo MD
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
[2017-12-11] MEDS: Acetylcysteine 20% Inhal Soln (4ml) INH SCH ×2 (07:28→19:28)
[2017-12-11 07:40] LABS: HEMOGLOBIN 15.7 g/dL (14.0-18.0); MEAN CELL VOLUME 86.4 fl (80.0-105.0); MEAN CORPUSCULAR HEMOGLOBIN 28.4 pg (25.0-35.0); MEAN CORPUSCULAR HGB CONC 32.9 g/dl (31.0-37.0); RBC 5.52 10^6/uL (3.5-6.1); WHITE BLOOD COUNT 8.7 10^3/ul (4.5-11.0)
[2017-12-11 07:50] LABS: HDL CHOLESTEROL 49 mg/dL (29-60); IRON 33 ug/dL (45-180)
--- NOTE | 2017-12-11 07:50 | CP.PCM.PN ---
Subjective - Date & Time of Evaluation Date of Evaluation: 12/11/17 Time of Evaluation: 06:45 - Subjective Subjective: Sleeping but easily awaken, lying in bed,no distress, denies chest pain, denies shortness of breath Reason for consultation: Cardiac evaluation, persistent lightheadedness/ dizziness,palpitations, history of right lung cancer with lobectomy,COPD Seen and examined by me and Dr. Sanders Objective - Vital Signs/Intake and Output Vital Signs (last 24 hours): Temp Pulse Resp BP Pulse Ox 97.6 F 94 H 18 108/59 L 100 12/11/17 06:00 12/11/17 06:00 12/11/17 06:00 12/11/17 06:00 12/11/17 06:00 Intake and Output: 12/11/17 12/11/17 06:59 18:59 Intake Total 3040 Output Total 5550 Balance -2510 - Medications Medications: Current Medications Acetylcysteine (Acetylcysteine 20%) 3 ml INH BIDRESP [facility] Last Admin: 12/11/17 07:28 Dose: 3 ml Albuterol/Ipratropium (Duoneb 3 Mg/0.5 Mg (3 Ml) Ud) 3 ml IH [id number] [facility] Last Admin: 12/11/17 07:28 Dose: 3 ml Aspirin (Aspirin Chewable) 81 mg PO DAILY [facility] Last Admin: 12/10/17 10:29 Dose: 81 mg Doxycycline Hyclate (Doryx) 100 mg PO Q12 [facility] PRN Reason: Protocol Last Admin: 12/10/17 21:51 Dose: 100 mg Enoxaparin Sodium (Lovenox) 30 mg SC DAILY [facility] PRN Reason: Protocol Folic Acid (Folic Acid) 1 mg PO DAILY [facility] Last Admin: 12/10/17 10:29 Dose: Not Given Sodium Chloride (Sodium Chloride 0.9%) 1,000 mls @ 150 mls/hr IV .Q6H40M [facility] Last Admin: 12/11/17 01:30 Dose: 150 mls/hr Methylprednisolone (Solu-Medrol) 40 mg IVP Q12 [facility] Last Admin: 12/10/17 21:51 Dose: 40 mg Non-Formulary Medication (Fluticasone/Vilanterol [Breo Ellipta 100-25 Mcg Inh]) 1 each IH DAILY [facility] Non-Formulary Medication (Nintedanib Esylate [Ofev]) 150 mg PO DAILY [facility] - Labs Labs: 12/11/17 07:20 12/09/17 20:54 - Constitutional Appears: No Acute Distress - Head Exam Head Exam: NORMOCEPHALIC - Eye Exam Eye Exam: Normal appearance - ENT Exam ENT Exam: Mucous Membranes Moist - Respiratory Exam Respiratory Exam: Decreased Breath Sounds, NORMAL BREATHING PATTERN Additional comments: crackles - Cardiovascular Exam Cardiovascular Exam: REGULAR RHYTHM, +S1, +S2 Additional comments: telemetry NSR 70-90's - GI/Abdominal Exam GI & Abdominal Exam: Soft, Normal Bowel Sounds - Extremities Exam Extremities Exam: Normal Capillary Refill - Neurological Exam Neurological Exam: Alert, Awake, Oriented x3 - Psychiatric Exam Psychiatric exam: Normal Affect, Normal Mood - Skin Skin Exam: Intact, Normal Color, Warm Assessment and Plan - Assessment and Plan (Free Text) Assessment: A 47 year old male who came in to the ER due to persistent dizziness and lightheadedness associated with palpitations. Denies loss of consciousness. also complaints of persistent feeling of weakness. History of COPD, anxiety, former smoker, marijuana use.history of right lung cancer with lobectomy. Plan: Previous cardiac work up negative for any myocardial ischemia Telemetry NSR 70-90's Will order carotid study to rule out carotid occlusion On ASA 81 mg daily Will add betablocker if becomes tachycardic Smoking cessation Pulmonary on consult Continue current treatment Continue current medications Will follow up Plan and treatment discussed with Dr. Sanders
[2017-12-11 08:00] LABS: % IRON SATURATION 8 % (20-55); LDL CHOLESTEROL 85 mg/dL (0-129); TOTAL IRON BINDING CAPACITY 408 ug/dL (261-462)
--- NOTE | 2017-12-11 08:07 | HP ---
CHIEF COMPLAINT: Dizziness, lightheadedness. HISTORY OF PRESENT ILLNESS: Mr. Ralph Meyer is a 47-year-old male with past medical history of COPD, came in [facility] Emergency Room with dizziness, lightheadedness; no loss of consciousness, but feels close to it; presyncope, persistent palpitation noted, heart rate more than 150 at one point. Patient also noted persistent weakness. No fever. No chills. No sweating. No headache. No dizziness, but feeling shortness of breath. No urinary symptoms. Patient states that he was seen earlier and was treated, recommended for admission at [facility] in the Emergency Department, but patient refused and went home. Now, he came back because his symptoms persist. He changed his mind. I saw patient in the room. Patient has a history of lung cancer status post chemotherapy and lobectomy. PAST MEDICAL HISTORY: COPD; lung cancer status post chemotherapy and lobectomy; history of marijuana abuse, history of anxiety. FAMILY HISTORY: Father and mother, noncontributory. HABITS: Never smoked. Alcohol, 1 to 2 beer a day. Substance abuse, marijuana. ALLERGIES: PATIENT IS NOT ALLERGIC WITH ANY MEDICATION. HOME MEDICATIONS: Ofev, aspirin, fluticasone and folic acid. REVIEW OF SYSTEMS: Patient was seen and examined on the bedside in 2R, still complaining about palpitation, shortness of breath, dizziness. No headache. No fever. No chills. No hematuria. No hematochezia. PHYSICAL EXAMINATION: VITAL SIGNS: Temperature 98, pulse 88, respiratory rate 18, blood pressure 130/58, pulse oximetry 100. HEENT: Head, normocephalic and atraumatic. Eyes PERRLA. Extraocular muscles intact. Conjunctivae clear. Nose patent. Mucous membrane moist. NECK: Supple. No carotid bruit, JVD or thyromegaly. CHEST: Bilaterally symmetrical. HEART: S1 and S2 positive. LUNGS: Clear to auscultation. ABDOMEN: Soft. Bowel sounds positive. No organomegaly. EXTREMITIES: No edema. No cyanosis. NEUROLOGIC: Patient is awake, alert. Moving all four extremities. No focal deficit. LABORATORY DATA: White blood cell is 7.3, hemoglobin 15.9, hematocrit 46.7, platelets 238. Sodium 138, potassium 3.8, BUN 10, creatinine 1, glucose 97. AST 27, ALT 26. TSH 1.89. ASSESSMENT AND PLAN: Mr. Ralph Meyer is a 47-year-old male with history of chronic obstructive pulmonary disease, lung cancer status post chemotherapy, lobectomy, came for persistent palpitation, lightheadedness, dizziness, shortness of breath, history of anxiety, marijuana abuse. Started on aspirin, folic acid, getting NS, fluticasone, Breo Ellipta, Came in emergency room times 2. Persistent palpitation. No loss of consciousness, feeling fatigue and tired. Stress test done here in [facility] on 05/09/2017. Echocardiography done. It shows left ventricular ejection fraction 55% to 60%. Previous cardiac workup was negative for myocardial infarction, maybe palpitation and increased heart rate, tachycardia, maybe due to anxiety or maybe recent marijuana use. Carotid Doppler of the neck done, results are pending. TSH is normal. Aspirin started. We will keep patient in telemetry, NS rate is 70s in telemetry. Chemical Engineering Technician added beta-blockers. Urged to quit smoking, urged to quit marijuana. Gastrointestinal and deep vein thrombosis prophylaxis. Repeat labs. We will follow up. I appreciated Cardiology input. April Nichols MD MTDD
[2017-12-11] MEDS: Enoxaparin 30 mg Syringe SC SCH (09:28)
[2017-12-11] MEDS: MethylPREDNISolone 40 mg Vial IVP SCH ×2 (09:29→22:46)
[2017-12-11 12:02] LABS: FOLATE > 20.0 ng/mL
--- NOTE | 2017-12-11 17:17 | PN ---
DATE: 12/11/2017 PULMONARY PROGRESS NOTE REFERRING PHYSICIAN: April Nichols MD. SUBJECTIVE: He is lying in the bed, head at 45 degrees. Feels better, getting nebulizer treatment. Decreased cough. Decreased shortness of breath. No nausea. No vomiting or diarrhea. No leg pain or leg swelling. PHYSICAL EXAMINATION: GENERAL: In no acute distress. VITAL SIGNS: Temperature is 98, heart rate is 100, respiratory rate is 20, blood pressure 134/85, pulse ox 99% on nasal cannula. HEENT: Moist mucous membrane. Crowded airway. NECK: Supple. No JVD. LUNGS: Have a prolonged expiratory phase with some basilar crackles. HEART: S1 and S2. ABDOMEN: Soft, nontender. No organomegaly. EXTREMITIES: There is no edema. NEUROLOGIC: Awake, alert, and follows simple command. MEDICATIONS: He is on Mucomyst 20% inhaled twice a day, aspirin 81 mg daily, doxycycline 100 mg twice a day, albuterol and Atrovent nebulizer every 6 hours, also has been on Breo, folic acid 1 mg daily, Lovenox 30 mg subcu daily, Ofev 150 mg daily, IV fluid normal saline at 50 mL per hour, Solu-Medrol 40 mg twice a day, Tenormin 12.5 mg daily. LABORATORY DATA: Shows hemoglobin 15.7, hematocrit 47.7, WBC 8.7, platelet is 225. Iron is 33, TIBC is 408. Hemoglobin A1c 6.3. LDH 407, triglyceride is 90, cholesterol is 153. TSH 1.89. IMPRESSION AND PLAN: Chronic obstructive lung disease, history of lung cancer requiring wedge versus lobectomy in the remote past, secondary polycythemia, history of chemotherapy in the past, no radiation in the past, being treated for pulmonary fibrosis. Pulmonary point of view, doing well. Continue steroids. Continue antibiotics, inhaled bronchodilator. Consider sleep apnea study upon discharge as an outpatient, PFT as an outpatient. Gastric prophylaxis, deep venous thrombosis prophylaxis. Thank you and we will follow with you. Siddharth Jo MD
--- NOTE | 2017-12-11 20:17 | US ---
PROCEDURE: Bilateral carotid artery duplex ultrasound HISTORY: Carotid stenosis PHYSICIAN(S): Vin Mcconnell MD. TECHNIQUE: Duplex sonography and color-flow Doppler were used to evaluate the carotid bifurcations and limited segments of the vertebral arteries bilaterally. The exam is somewhat limited by body habitus FINDINGS: There is mild smooth heterogeneous plaque noted at the carotid bifurcations bilaterally. The peak systolic velocity in the proximal right internal carotid artery is 91 cm/sec. This corresponds to a 20 to 39% proximal right ICA stenosis. Normal systolic velocities are noted in the proximal right external carotid artery. There is antegrade flow in the right vertebral artery. The peak systolic velocity in the proximal left internal carotid artery is 93 cm/sec. This corresponds to a 20 to 39% proximal left ICA stenosis. Normal systolic velocities are noted in the proximal left external carotid artery. There is antegrade flow in the left vertebral artery. IMPRESSION: 1. Bilateral 20-39% proximal ICA stenoses. 2. Antegrade flow in both vertebral arteries.
--- NOTE | 2017-12-11 23:22 | PN ---
DATE: 12/11/2017 SUBJECTIVE: Patient is a 47-year-old male. Patient was seen and examined at the bedside, looking comfortable. No nausea, vomiting, or diarrhea. No hematuria or hematochezia. Cough is better. Shortness of breath is better. No fever, no chills. PHYSICAL EXAMINATION: VITAL SIGNS: Temperature 98.2, heart rate 98, respiratory rate 18, blood pressure 130/80. HEENT: Head, normocephalic and atraumatic. Eyes PERRLA. Extraocular muscles intact. Conjunctivae clear. Nose patent. Mucous membrane moist. NECK: Supple. No carotid bruit, JVD, or thyromegaly. CHEST: Bilaterally symmetrical. HEART: S1 and S2 positive. LUNGS: Clear to auscultation. ABDOMEN: Soft. Bowel sounds present. No organomegaly. EXTREMITIES: No edema. No cyanosis. NEUROLOGIC: Patient is awake, alert. Moving all four extremities. No focal deficit MEDICATIONS: Mucomyst, aspirin, doxycycline, albuterol, BREO, folic acid, Lovenox, Ofev, IV NS, Solu-Medrol, Tenormin. LABORATORY DATA: Hemoglobin 15.7, hematocrit 47.7, white blood cells 8.7, platelet is 225. Hemoglobin A1c 6.3. Cholesterol 153. TSH 1.89. Triglyceride 90. ASSESSMENT AND PLAN: Mr. Ralph Meyer is a 47-year-old male with chronic obstructive lung disease, history of lung cancer, requiring wedge versus lobectomy in the remote past, secondary polycythemia, history of chemotherapy in the past. No radiation as per patient. Patient is being treated for pulmonary fibrosis. Continue steroids, tapering dose. Continue antibiotics, inhaled bronchodilators as per Dr. Jo. Patient needs pulmonary function test and sleep study as outpatient. Gastrointestinal, deep vein thrombosis prophylaxis. Appreciate Dr. Jo's input and Cardiology input. Came with lightheadedness, dizziness and palpitation. Now, according to patient, getting better. According to Cardiology nurse practitionerMaricarmen, previous cardiac workup was negative. They added beta-blockers if patient become tachycardic. Urged to quit smoking. Reviewed Dr. Adamson's notes. Noncompliant. Urged to be compliant with doctor's appointment. We will follow up. April Nichols MD [facility] # [id number]
--- NOTE | 2017-12-12 01:34 | CP.PCM.PN ---
Subjective - Date & Time of Evaluation Date of Evaluation: 12/12/17 Time of Evaluation: 01:32 - Subjective Subjective: S:Seen at bedside. Requests something for anxiety. States what he received yesterday helped him . Denies chest pain, sob. Medical record was reviewed. O: Last Vital Signs 3 Temp 98.3 F 12/11/17 18:00 Pulse 88 12/11/17 18:00 Resp 19 12/11/17 18:00 BP 136/83 12/11/17 18:00 Pulse Ox 100 12/11/17 06:00 Awake, alert, not in distress. LUNGS: Normal breathing pattern. A:Anxiety. P:Xanax 0.5 mg PO x 1. Objective - Vital Signs/Intake and Output Vital Signs (last 24 hours): Temp Pulse Resp BP Pulse Ox 98.3 F 88 19 136/83 100 12/11/17 18:00 12/11/17 18:00 12/11/17 18:00 12/11/17 18:00 12/11/17 06:00 - Medications Medications: Current Medications Acetylcysteine (Acetylcysteine 20%) 3 ml INH BIDRESP [facility] Last Admin: 12/11/17 19:28 Dose: 3 ml Albuterol/Ipratropium (Duoneb 3 Mg/0.5 Mg (3 Ml) Ud) 3 ml IH [id number] [facility] Last Admin: 12/11/17 19:28 Dose: 3 ml Aspirin (Aspirin Chewable) 81 mg PO DAILY [facility] Last Admin: 12/11/17 09:29 Dose: 81 mg Atenolol (Tenormin) 12.5 mg PO DAILY [facility] Last Admin: 12/11/17 12:32 Dose: 12.5 mg Doxycycline Hyclate (Doryx) 100 mg PO Q12 [facility] PRN Reason: Protocol Last Admin: 12/11/17 22:46 Dose: 100 mg Enoxaparin Sodium (Lovenox) 30 mg SC DAILY [facility] PRN Reason: Protocol Last Admin: 12/11/17 09:28 Dose: 30 mg Folic Acid (Folic Acid) 1 mg PO DAILY [facility] Last Admin: 12/11/17 09:29 Dose: 1 mg Sodium Chloride (Sodium Chloride 0.9%) 1,000 mls @ 150 mls/hr IV .Q6H40M [facility] Last Admin: 12/11/17 13:59 Dose: Not Given Methylprednisolone (Solu-Medrol) 40 mg IVP Q12 [facility] Last Admin: 12/11/17 22:46 Dose: 40 mg Non-Formulary Medication (Fluticasone/Vilanterol [Breo Ellipta 100-25 Mcg Inh]) 1 each IH DAILY [facility] Non-Formulary Medication (Nintedanib Esylate [Ofev]) 150 mg PO DAILY [facility] - Labs Labs: 12/11/17 07:20 12/09/17 20:54
[2017-12-12] MEDS: Sodium Chloride 0.9% 1,000 ML IV SCH ×2 (02:00→09:02)
[2017-12-12] MEDS: Albuterol-Ipratrop 3 mg / 0.5 (3 ml) UD IH SCH ×3 (02:07→13:25)
[2017-12-12 03:36] VITALS: RESP 18
[2017-12-12 06:14] VITALS: O2SAT 98
[2017-12-12 07:34] LABS: ALB/GLOB RATIO 1.6 (1.1-1.8); ALBUMIN 4.2 g/dL (3.0-4.8); ALT/SGPT 24 U/L (7-56); AST/SGOT 25 U/L (17-59); BLOOD UREA NITROGEN 11 mg/dL (7-21); CALCIUM 9.2 mg/dL (8.4-10.5); GFR AFRICAN-AMERICAN > 60; GFR NON-AFRICAN AMERICAN > 60
[2017-12-12] MEDS: Acetylcysteine 20% Inhal Soln (4ml) INH SCH (07:34)
[2017-12-12] MEDS: MethylPREDNISolone 40 mg Vial IVP SCH (09:02)
[2017-12-12] MEDS: Enoxaparin 30 mg Syringe SC SCH (09:02)
--- NOTE | 2017-12-12 12:33 | CP.PCM.PN ---
Subjective - Date & Time of Evaluation Date of Evaluation: 12/12/17 Time of Evaluation: 10:30 - Subjective Subjective: Heme/onc Progress Note - Dr. Adamson Patient was seen and examined at bedside. Pt had complaints of anxiety overnight as per nursing staff, at which time meds were administered. Pt was for stress test however was cancelled and patient was instructed to follow with Dr. Sanders for outpatient stress test. Pt states he is feeling well, and expressed interest in going home. Objective - Vital Signs/Intake and Output Vital Signs (last 24 hours): Temp Pulse Resp BP Pulse Ox 98.1 F 96 H 18 117/65 98 12/12/17 06:00 12/12/17 10:00 12/12/17 06:00 12/12/17 06:00 12/12/17 06:00 Intake and Output: 12/12/17 12/12/17 06:59 18:59 Intake Total 680 Output Total 1300 Balance -620 - Medications Medications: Current Medications Acetylcysteine (Acetylcysteine 20%) 3 ml INH BIDRESP [facility] Last Admin: 12/12/17 07:34 Dose: 3 ml Albuterol/Ipratropium (Duoneb 3 Mg/0.5 Mg (3 Ml) Ud) 3 ml IH [id number] [facility] Last Admin: 12/12/17 07:34 Dose: 3 ml Aspirin (Aspirin Chewable) 81 mg PO DAILY [facility] Last Admin: 12/12/17 09:01 Dose: 81 mg Atenolol (Tenormin) 12.5 mg PO DAILY [facility] Last Admin: 12/12/17 09:03 Dose: Not Given Doxycycline Hyclate (Doryx) 100 mg PO Q12 [facility] PRN Reason: Protocol Last Admin: 12/12/17 09:01 Dose: 100 mg Enoxaparin Sodium (Lovenox) 30 mg SC DAILY [facility] PRN Reason: Protocol Last Admin: 12/12/17 09:02 Dose: 30 mg Folic Acid (Folic Acid) 1 mg PO DAILY [facility] Last Admin: 12/12/17 09:01 Dose: 1 mg Sodium Chloride (Sodium Chloride 0.9%) 1,000 mls @ 150 mls/hr IV .Q6H40M [facility] Last Admin: 12/12/17 09:02 Dose: Not Given Methylprednisolone (Solu-Medrol) 40 mg IVP Q12 [facility] Last Admin: 12/12/17 09:02 Dose: 40 mg Non-Formulary Medication (Fluticasone/Vilanterol [Breo Ellipta 100-25 Mcg Inh]) 1 each IH DAILY [facility] Non-Formulary Medication (Nintedanib Esylate [Ofev]) 150 mg PO DAILY [facility] - Labs Labs: 12/11/17 07:20 12/12/17 05:30 - Constitutional Appears: No Acute Distress - Head Exam Head Exam: ATRAUMATIC, NORMAL INSPECTION, NORMOCEPHALIC - Eye Exam Eye Exam: EOMI, Normal appearance, PERRL Pupil Exam: NORMAL ACCOMODATION, PERRL - ENT Exam ENT Exam: Mucous Membranes Moist, Normal Exam - Neck Exam Neck Exam: Full ROM, Normal Inspection. absent: Lymphadenopathy - Respiratory Exam Respiratory Exam: Clear to Ausculation Bilateral, NORMAL BREATHING PATTERN - Cardiovascular Exam Cardiovascular Exam: REGULAR RHYTHM, +S1, +S2. absent: Murmur - GI/Abdominal Exam GI & Abdominal Exam: Soft, Normal Bowel Sounds. 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 Pt was admitted for tachycardia. Pt was found to have progressive pulmonary fibrosis as demonstrated by previous CT. 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 Pt is 02 dependent at home, has intermittent phlebotomies for polycythemia. Pt is for stress test by Cardiology Dr. Sanders. Will arrange for outpt appointment. Continue ofev. Pt may be due for another MRI of his brain as it is approaching 6 months since his last imaging.
[2017-12-12 12:52] VITALS: BP 132/85; PULSE 102
--- NOTE | 2017-12-12 12:58 | CON ---
DATE: 12/12/2017 NEUROLOGY CONSULTATION CHIEF COMPLAINT: Dizziness. HISTORY OF PRESENT ILLNESS: This is a 47-year-old man with history of stage III non-small cell carcinoma of the right upper lobe of the lung. There is component of both adenocarcinoma and sarcomatoid elements in the tumor, status post resection, status post systemic chemotherapy, history of COPD, history of anxiety who had came in for some intermittent episode and dizziness and lightheadedness and was having palpitations. He had some mild initial evidence of some tachycardia, which is currently normalized and has had MRI of the brain in the past, which was valued by me, which showed no evidence of an acute cranial abnormality, which was done on 05/2017. His carotid Doppler showed 39% proximal ICA stenosis with antegrade flow of vertebral arteries. Currently, he is no longer feeling lightheaded or dizzy. He is much more stabilized. He is on steroids. He has underlying COPD. At this time, no focal neurological deficits, seen on examination. PAST MEDICAL HISTORY: As above. SOCIAL HISTORY: No illicit drug use, smoking, or EtOH abuse. MEDICATIONS: Reviewed by nurse's reconciliation sheet. REVIEW OF SYSTEMS: A 14-point review of systems is negative except as per the HPI. LABORATORY DATA: Sodium 144, potassium 4.5, chloride 104, carbon dioxide 27, BUN of 11, creatinine 0.8, random glucose 147. PHYSICAL EXAMINATION: VITAL SIGNS: Temperature is 98.1, pulse is 96, blood pressure 170/65, respiratory rate 18, oxygen saturation 98% by nasal cannula. GENERAL: The patient is sitting up in bed, in no acute distress. HEENT: Head is atraumatic and normocephalic. PERRLA. Extraocular muscles intact. NECK: Supple. No JVD. No adenopathy noted. LUNGS: Clear to auscultation. No adventitious sounds. HEART: S1 and S2, normal rate and rhythm. No murmurs, rubs, or gallops. ABDOMEN: Soft, nontender, and nondistended. Bowel sounds are present. EXTREMITIES: No clubbing. No cyanosis. Peripheral pulses are 2+ felt bilaterally. NEUROLOGIC: The patient is alert and oriented to person, place, month, and year. Speech fluent without errors. Cranial nerves II through XII are intact. Motor exam: Moves all extremities equally. Toes are downgoing bilaterally. Sensory exam: Light touch, pinprick, proprioception, and vibration intact. DTRs are 2+ throughout. Coordination: [id number] intact. No dysmetria noted. 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 At this time, it feels like the dizziness is secondary to symptomatic tachycardia superimposed on anxiety rather than anything neurologic. He has had MRI of the brain in the past on 05/2017, which showed no acute intracranial abnormalities. His carotid Doppler shows no significant hemodynamic stenosis. RECOMMENDATION: 1. Aspirin 81 mg for stroke prevention. 2. Relaxation techniques. 3. Follow up with Pulmonary's recommendation in regards to COPD and follow up with his Oncology in regards to his history of lung cancer. At this time, it is clinically stable from my standpoint. Adrian Linares MD
[2017-12-12 13:14] VITALS: TEMP 97.4
--- NOTE | 2017-12-12 16:16 | PN ---
DATE: 12/12/2017 LOCATION: The patient in room 269, bed 1. REASON FOR CONSULTATION AND FOLLOWUP: Palpitation, dizziness, COPD, anxiety, marijuana use, history of right lung cancer with lobectomy. SUBJECTIVE: Patient denies any palpitation. He is lying flat in bed without any cardiac symptom at present. Denies any chest pain breathing is stable at the present moment. PHYSICAL EXAMINATION: VITAL SIGNS: Blood pressure , respirations 18, pulse 96, temperature 98. HEENT: Head is normocephalic. Eyes: Pupils normal. Conjunctivae normal. Nose and throat normal. NECK: JVP low. Carotids equal. THORAX: AP diameter normal. LUNGS: No rales. CARDIOVASCULAR: S1 and S2. ABDOMEN: Soft. No tenderness. No organomegaly. Bowel sounds normal. EXTREMITIES: No clubbing. No cyanosis. LABORATORY DATA: WBC 8.7, hemoglobin 15.7, hematocrit 47.7, platelets 225. Sodium 144, potassium 4.5, BUN 11, creatinine 0.8. AST and ALT normal. Total protein, albumin normal. DIAGNOSES: Palpitation, chronic obstructive pulmonary disease, dizziness, anxiety, former smoker, marijuana use, history of right lung cancer with lobectomy. Patient has stress test and echo in 05/2017. Stress test was negative. PLAN: We will put on patient atenolol 12.5 mg yesterday with that heart rate has been staying still stable and we will continue that . Patient is also on doxycycline 100 mg p.o. every 12 hours, folic acid 1 mg daily, Lovenox 30 mg subcu daily. Patient is getting IV fluids, atenolol 12.5 mg p.o. daily. We will continue the medication and he is stable on atenolol 12.5 mg daily from cardiac point of view so we will continue that. Stress test, echo was done 05/2017 so he does not need at this moment any further cardiac workup. We will follow up. Siddharth Sanders MD
--- NOTE | 2017-12-12 23:20 | PN ---
DATE: 12/12/2017 PULMONARY PROGRESS NOTE REFERRING PHYSICIAN: Dr. Nichols. SUBJECTIVE: He is sitting up in a chair. Night was unremarkable. Feels better. Decreased cough. Decreased shortness of breath. No nausea. No vomiting. No diarrhea. No leg pain or leg swelling. OBJECTIVE: GENERAL: In no acute distress. VITAL SIGNS: Temperature is 98, heart rate is 102, respiratory rate is 18, blood pressure 132/85, pulse ox 98% on nasal cannula. HEENT: Moist mucous membrane. Crowded airway. Mallampati score is 4. NECK: Supple. No JVD. LUNGS: Have a few crackles at the bases. HEART: S1 and S2. ABDOMEN: Soft, nontender. No organomegaly. EXTREMITIES: There is no edema. NEUROLOGIC: Awake and alert. Follows simple commands. MEDICATIONS: Reviewed. No new medication reported since yesterday. LABORATORY DATA: Reviewed. Sodium 144, potassium 4.5, chloride 104, bicarbonate 27, BUN 11, creatinine 0.8, glucose 147, calcium 9.2. Iron is 33. AST 25, ALT 24, alk phos is 63. Albumin 4.2. Cholesterol is 153. Folate more than 20. TSH 1.89. IMPRESSION AND PLAN: Chronic obstructive lung disease, history of lung cancer requiring wedge resection in the past, history of secondary polycythemia, been on chemotherapy in the past, bronchiectasis, pulmonary fibrosis. Pulmonary point of view, doing okay. May go home on p.o. prednisone, antibiotics, bronchodilator. Gastric prophylaxis, deep vein thrombosis prophylaxis. Outpatient pulmonary function test and sleep study. Thank you and we will follow with you. Siddharth Jo MD
== END 2017-12-12 14:33 | disposition home or self-care (01) | DRG 198 ==
LOC: ED 19:35 → ERH 20:53 → 2RNO 22:12
PROVIDERS: ADMIT Internal Medicine; ATTEND Internal Medicine
DX: J84.10 Pulmonary fibrosis, unspecified (principal); R42 Dizziness and giddiness; J44.9 Chronic obstructive pulmonary disease, unspecified; I65.29 Occlusion and stenosis of unspecified carotid artery; F41.9 Anxiety disorder, unspecified; Z85.118 Personal history of other malignant neoplasm of bronchus and lung; Z90.2 Acquired absence of lung [part of]; Z92.21 Personal history of antineoplastic chemotherapy; Z99.81 Dependence on supplemental oxygen; Z91.19 Patient's noncompliance with other medical treatment and regimen; Z79.82 Long term (current) use of aspirin; F17.200 Nicotine dependence, unspecified, uncomplicated; F12.90 Cannabis use, unspecified, uncomplicated; D75.1 Secondary polycythemia; R00.0 Tachycardia, unspecified; R03.0 Elevated blood-pressure reading, without diagnosis of hypertension

== ENCOUNTER 2018-09-04 08:59 | Outpatient (CLI) | payer MEDICARE | END 2018-09-04 09:00 | disposition home or self-care (01) | LOC: RAD 08:59 ==

== ENCOUNTER 2018-09-07 13:35 | Emergency (ER) | payer MEDICARE ==
[2018-09-07 13:58] VITALS: RESP 20; BMI 27.4
--- NOTE | 2018-09-07 13:58 | ED PDOC ---
Arrival/HPI - General Historian: Patient - History of Present Illness Narrative History of Present Illness (Text): 09/07/18 14:19 48 year old male, whose past medical history includes lung CA s/p resection, COPD, and pulmonary fibrosis who presents to the emergency department for further evaluation of pneumonia. Patient notes he had a Chest X-ray on Tuesday and was notified by Dr. Jo that he has pneumonia. Dr. Jo prescribed him antibiotics and steroids, however patient is still concerned. He reports associated dry cough and fatigue. Of note, patient uses 2L oxygen tank at home. Patient denies fevers, chills, headache, dizziness, chest pain, shortness of breath, dyspnea on exertion, abdominal pain, nausea, vomiting, diarrhea, back pain, neck pain, or any other complaint. PMD: Dr. 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 Jo 09/07/18 14:34 Time/Duration: < week Symptom Onset: Gradual Symptom Course: Unchanged Activities at Onset: Light Context: Home Past Medical History - Provider Review Nursing Documentation Reviewed: Yes - Past History Past History: No Previous - Infectious Disease Hx of Infectious Diseases: None - Tetanus Immunization Tetanus Immunization: Unknown - Cardiac Hx Hypertension: Yes - Pulmonary Hx Chronic Obstructive Pulmonary Disease (COPD): Yes - Neurological Hx Neurological Disorder: No - HEENT Hx HEENT Disorder: No - Renal Hx Renal Disorder: No - Endocrine/Metabolic Hx Endocrine Disorders: No - Hematological/Oncological Hx Blood Disorders: No - Integumentary Hx Dermatological Disorder: No - Musculoskeletal/Rheumatological Hx Musculoskeletal Disorders: No - Gastrointestinal Hx Gastrointestinal Disorders: No - Genitourinary/Gynecological Hx Genitourinary Disorders: No - Psychiatric Hx Psychophysiologic Disorder: Yes Hx Anxiety: Yes Hx Substance Use: Yes (MARIJUANA) - Anesthesia Hx Anesthesia: No Hx Anesthesia Reactions: No Hx Malignant Hyperthermia: No - Suicidal Assessment Feels Threatened In Home Enviroment: No Family/Social History - Physician Review Nursing Documentation Reviewed: Yes Family/Social History: No Known Family HX Smoking Status: Former Smoker Hx Alcohol Use: Yes (1-2 BEERS DAY) Hx Substance Use: Yes (MARIJUANA) Allergies/Home Meds Allergies/Adverse Reactions: Allergies No Known Allergies Allergy (Verified 09/07/18 13:52) Home Medications: Home Meds Medication Instructions Recorded Confirmed Nintedanib Esylate [Ofev] 150 mg PO DAILY 04/24/17 12/15/17 Aspirin [[place] Aspirin] 81 mg PO DAILY 05/09/17 12/15/17 Fluticasone/Vilanterol [Breo 1 each IH DAILY 05/09/17 12/15/17 Ellipta 100-25 Mcg INH] Folic Acid 1 mg PO DAILY 05/09/17 12/15/17 Atenolol [Tenormin] 12.5 mg PO DAILY 12/12/17 12/15/17 Atorvastatin [Lipitor] 20 mg PO DAILY 12/15/17 12/15/17 Review of Systems - Physician Review All systems were reviewed & negative as marked: Yes - Review of Systems Constitutional: absent: Fevers Respiratory: Cough. absent: SOB Cardiovascular: absent: Chest Pain Gastrointestinal: absent: Abdominal Pain, Diarrhea, Nausea, Vomiting Genitourinary Male: absent: Dysuria, Frequency Musculoskeletal: absent: Back Pain, Neck Pain Skin: absent: Rash Neurological: absent: Headache, Dizziness Physical Exam Vital Signs Reviewed: Yes Temperature: Afebrile Blood Pressure: Normal Pulse: Tachycardic Respiratory Rate: Normal Appearance: Positive for: Well-Appearing, Non-Toxic, Comfortable Pain Distress: None Mental Status: Positive for: Alert and Oriented X 3 - Systems Exam Head: Present: Atraumatic, Normocephalic Pupils: Present: PERRL Extroacular Muscles: Present: EOMI Conjunctiva: Present: Normal Mouth: Present: Moist Mucous Membranes Neck: Present: Normal Range of Motion Respiratory/Chest: Present: Clear to Auscultation, Good Air Exchange, Decreased Breath Sounds (diminshed breath sounds bilaterally more on the right), Other (faint crackle on the left). No: Respiratory Distress, Accessory Muscle Use Cardiovascular: Present: Normal S1, S2, Tachycardic. No: Murmurs Abdomen: Present: Distention, Other (soft). No: Tenderness, Peritoneal Signs Back: Present: Normal Inspection Upper Extremity: Present: Normal Inspection. No: Cyanosis, Edema Lower Extremity: Present: Normal Inspection. No: Edema Neurological: Present: GCS=15, CN II-XII Intact, Speech Normal (able to answer questions) Skin: Present: Warm, Dry, Normal Color. No: Rashes Psychiatric: Present: Alert, Oriented x 3, Normal Insight, Normal Concentration Medical Decision Making ED Course and Treatment: 09/07/18 14:28 Impression: 48 year old female who presents to the emergency department for evaluation of pneumonia. Differential Diagnosis included but are not limited to: Pneumonia Influenza COPD exacerbation Bronchitis Plan: -- EKG -- Labs -- Chest X-ray -- Duoneb -- SOLU-medrol -- Influenza A B -- Reassess and disposition Prior Visits: Notes and results from previous visits were reviewed. Progress Notes: 09/07/18 16:28 Labs reviewed with no acute leukocytosis and no infiltrate seen on CXR. Discu ssed findings with Dr. Majano(PCP) who states patient may follow up with him in office. He agrees with plan for steroid taper and Z-mynor. 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 Jo. Oppertunity for questions provided and answered. Scripts given. He is stable for discharge - Lab Interpretations Lab Results: 09/07/18 15:11 09/07/18 15:11 Lab Results 09/07/18 15:30: Influenza Typ A,B (EIA) Negative for flu a/b 09/07/18 15:11: Sodium 139, Potassium 3.7, Chloride 102, Carbon Dioxide 28, Anion Gap 13, BUN 8, Creatinine 1.0, Est GFR ( Amer) > 60, Est GFR (Non- Af Amer) > 60, Random Glucose 122 H, Calcium 9.2, Total Bilirubin 1.0, AST 23, A LT 19, Alkaline Phosphatase 77, Total Protein 7.6, Albumin 4.4, Globulin 3.2, Albumin/Globulin Ratio 1.4 09/07/18 15:11: WBC 5.9, RBC 5.97, Hgb 17.8 D, Hct 53.0 H, MCV 88.8, MCH 29.8, MCHC 33.6, RDW 14.7 H, Plt Count 237, MPV 11.8 H, Neut % (Auto) 65.2, Lymph % (Auto) 20.9 L, [place] % (Auto) 11.7 H, Eos % (Auto) 1.9, Baso % (Auto) 0.3, Lymph # (Auto) 1.2, [place] # (Auto) 0.7 H, Eos # (Auto) 0.1, Baso # (Auto) 0.02, Absolute Neuts (auto) 3.86 I have reviewed the lab results: Yes - RAD Interpretation Narrative RAD Interpretations (Text): 09/07/18 15:35 Chest X-ray reviewed by radiologist, shows: IMPRESSION: No active disease. Fur Machine Operator: Radiologist - EKG Interpretation EKG Interpretation (Text): 09/07/18 14:32 EKG reviewed by me, shows: Sinus tachycardia at108 bpm with no st elevations. Interpreted by ED Physician: Yes Type: 12 lead EKG - Scribe Statement The provider has reviewed the documentation as recorded by the Scribe No Lopes Provider Scribe Attestation: All medical record entries made by the Scribe were at my direction and personally dictated by me. I have reviewed the chart and agree that the record accurately reflects my personal performance of the history, physical exam, medical decision making, and the department course for this patient. I have also personally directed, reviewed, and agree with the discharge instructions and disposition. Disposition/Present on Arrival - Present on Arrival Any Indicators Present on Arrival: No History of DVT/PE: No History of Uncontrolled Diabetes: No Urinary Catheter: No History Surgical Site Infection Following: None - Disposition Have Diagnosis and Disposition been Completed?: Yes Diagnosis: Bronchitis Disposition: HOME/ ROUTINE Disposition Time: 16:29 Patient Plan: Discharge Patient Problems: Current Active Problems Problem Status Onset Bronchitis Acute Discharge Instructions (ExitCare): Acute Bronchitis, Adult (DC) Print Language: MACEDONIAN Additional Instructions: All medical record entries made by the Scribe were at my direction and personally dictated by me. I have reviewed the chart and agree that the record accurately reflects my personal performance of the history, physical exam, medical decision making, and the department course for this patient. I have also personally directed, reviewed, and agree with the discharge instructions and disposition. Please follow up with Dr. Majano in 1-2 weeks Please take medication as prescribed. Prescriptions: Azithromycin [Z-Mynor] 250 mg PO DAILY #6 tab Methylprednisolone [Medrol Dose Pack (21 tabs)] 4 mg PO DAILY #21 mg Referrals: Aniceto Rodriguez MD [Primary Care Provider] - Follow up with primary Forms: [employer] ([place]), WORK NOTE
[2018-09-07] MEDS ORDERED: Albuterol-Ipratrop 3 mg / 0.5 (3 ml) UD IH STA (14:18)
--- NOTE | 2018-09-07 15:10 | RAD ---
Date of service: 09/07/2018 HISTORY: Sob w/ h/o R pnumonectomy r/o PNA COMPARISON: 09/04/2018 FINDINGS: LUNGS: No active pulmonary disease. PLEURA: No significant pleural effusion identified, no pneumothorax apparent. CARDIOVASCULAR: No aortic atherosclerotic calcification present. Normal cardiac size. Left PICC catheter terminates in the region of the SVC. OSSEOUS STRUCTURES: No significant abnormalities. VISUALIZED UPPER ABDOMEN: Normal. OTHER FINDINGS: None. IMPRESSION: No active disease.
[2018-09-07 15:18] LABS: BASO # 0.02 K/mm3 (0.0-2.0); BASO % 0.3 % (0.0-3.0); EOS # 0.1 (0.0-0.7); EOS % 1.9 % (1.5-5.0); HEMOGLOBIN 17.8 g/dL (14.0-18.0); LYMPH # 1.2 (1.2-3.4); LYMPH % 20.9 % (22.0-35.0); MEAN CELL VOLUME 88.8 fl (80.0-105.0); MEAN CORPUSCULAR HEMOGLOBIN 29.8 pg (25.0-35.0); MEAN CORPUSCULAR HGB CONC 33.6 g/dl (31.0-37.0); MEAN PLATELET VOLUME 11.8 fl (7.0-11.0); MONO # 0.7 (0.1-0.6); MONO % 11.7 % (1.0-6.0); RBC 5.97 10^6/uL (3.5-6.1); RED CELL DISTRIBUTION WIDTH 14.7 % (11.5-14.5); WHITE BLOOD COUNT 5.9 10^3/uL (4.5-11.0)
[2018-09-07 15:27] LABS: ALB/GLOB RATIO 1.4 (1.1-1.8); ALBUMIN 4.4 g/dL (3.0-4.8); ALT/SGPT 19 U/L (7-56); AST/SGOT 23 U/L (17-59); BLOOD UREA NITROGEN 8 mg/dL (7-21); CALCIUM 9.2 mg/dL (8.4-10.5); GFR NON-AFRICAN AMERICAN > 60
--- NOTE | 2018-09-07 16:23 | CARD ---
APPROVED REPORT Date of service: 09/07/2018 EKG Measurement Heart [id number] <Conclusion> Sinus tachycardia Rightward axis Borderline ECG
[2018-09-07 16:50] VITALS: BP 140/82; PULSE 89; TEMP 97.7; O2SAT 96
== END 2018-09-07 16:57 | disposition home or self-care (01) ==
LOC: ED 13:35
DX: J40 Bronchitis, not specified as acute or chronic (principal); I10 Essential (primary) hypertension; Z87.891 Personal history of nicotine dependence
CPT/HCPCS: 71045; 80053; 85025; 87804; 93005; 96374; 99284; J2930

== ENCOUNTER 2018-10-03 20:45 | Emergency (ER) | payer MEDICARE ==
[2018-10-03 20:46] VITALS: BMI 27.4
--- NOTE | 2018-10-03 21:01 | ED PDOC ---
Arrival/HPI - General Chief Complaint: Shortness Of Breath Time Seen by Provider: 10/03/18 20:53 Historian: Patient - History of Present Illness Narrative History of Present Illness (Text): 10/03/18 20:59 Ralph Meyer is a 48 year old male, whose past medical history includes COPD, lung cancer s/p chemotherapy and lobectomy, and anxiety, who presents to the Emergency department complaining of shortness of breath. Patient states he was recently treated for pneumonia 3 weeks prior and felt better initially but note he developed worsening shortness of breath over the past 4-5 days. Patient states he used his inhaler at home with no significant relief. Patient denies any fever, chills, chest pain, nausea, vomiting, diarrhea, urinary symptoms, back pain, neck pain, headache, dizziness, or any other complaints. Symptom Onset: Gradual Symptom Course: Unchanged Activities at Onset: Light Context: Home Past Medical History - Provider Review Nursing Documentation Reviewed: Yes - Past History Past History: No Previous - Infectious Disease Hx of Infectious Diseases: None - Tetanus Immunization Tetanus Immunization: Unknown - Cardiac Hx Hypertension: Yes - Pulmonary Hx Chronic Obstructive Pulmonary Disease (COPD): Yes - Neurological Hx Neurological Disorder: No - HEENT Hx HEENT Disorder: No - Renal Hx Renal Disorder: No - Endocrine/Metabolic Hx Endocrine Disorders: No - Hematological/Oncological Hx Blood Disorders: No - Integumentary Hx Dermatological Disorder: No - Musculoskeletal/Rheumatological Hx Musculoskeletal Disorders: No - Gastrointestinal Hx Gastrointestinal Disorders: No - Genitourinary/Gynecological Hx Genitourinary Disorders: No - Psychiatric Hx Psychophysiologic Disorder: Yes Hx Anxiety: Yes Hx Substance Use: Yes (MARIJUANA) - Surgical History Other/Comment: 03/2015 Rt lung lobectomy - Anesthesia Hx Anesthesia: No Hx Anesthesia Reactions: No Hx Malignant Hyperthermia: No - Suicidal Assessment Feels Threatened In Home Enviroment: No Family/Social History - Physician Review Nursing Documentation Reviewed: Yes Family/Social History: Unknown Family HX Smoking Status: Former Smoker Hx Alcohol Use: Yes (1-2 BEERS DAY) Hx Substance Use: Yes (MARIJUANA) Allergies/Home Meds Allergies/Adverse Reactions: Allergies No Known Allergies Allergy (Verified 09/07/18 13:52) Home Medications: Home Meds Medication Instructions Recorded Confirmed Folic Acid 1 mg PO DAILY 05/09/17 10/04/18 Review of Systems - Physician Review All systems were reviewed & negative as marked: Yes - Review of Systems Constitutional: Normal. absent: Fevers Eyes: Normal ENT: Normal Respiratory: SOB. absent: Cough Cardiovascular: Normal. absent: Chest Pain Gastrointestinal: Normal. absent: Abdominal Pain, Diarrhea, Nausea, Vomiting Genitourinary Male: Normal. absent: Dysuria, Frequency, Hematuria, Urinary Output Changes Musculoskeletal: Normal. absent: Back Pain, Neck Pain Skin: Normal. absent: Rash Neurological: Normal. absent: Headache, Dizziness Endocrine: Normal Hemo/Lymphatic: Normal Psychiatric: Normal Physical Exam Vital Signs Reviewed: Yes Vital Signs Temp Pulse Resp BP Pulse Ox 10/03/18 20:57 97.7 F 104 H 20 132/104 H 97 Temperature: Afebrile Blood Pressure: Normal Pulse: Regular Respiratory Rate: Normal Appearance: Positive for: Well-Appearing, Non-Toxic, Comfortable Pain Distress: None Mental Status: Positive for: Alert and Oriented X 3 - Systems Exam Head: Present: Atraumatic, Normocephalic Pupils: Present: PERRL Extroacular Muscles: Present: EOMI Conjunctiva: Present: Normal Mouth: Present: Moist Mucous Membranes Neck: Present: Normal Range of Motion Respiratory/Chest: Present: Decreased Breath Sounds (Poor air entry bilaterally). No: Respiratory Distress, Accessory Muscle Use Cardiovascular: Present: Regular Rate and Rhythm, Normal S1, S2. No: Murmurs Abdomen: No: Tenderness, Distention, Peritoneal Signs Back: Present: Normal Inspection Upper Extremity: Present: Normal Inspection. No: Cyanosis, Edema Lower Extremity: Present: Normal Inspection. No: Edema Neurological: Present: GCS=15, CN II-XII Intact, Speech Normal Skin: Present: Warm, Dry, Normal Color. No: Rashes Psychiatric: Present: Alert, Oriented x 3, Normal Insight, Normal Concentration Medical Decision Making ED Course and Treatment: 10/03/18 20:59 Impression: 48 year old male complaining of worsening shortness of breath. Plan: -- EKG -- Chest X-ray -- Labs, cardiac enzymes, BNP, blood cultures -- Reassess and disposition Prior Visits: Notes and results from previous visits were reviewed. Progress Notes: Reviewed EKG, sinus tachycardia at 112 bpm. Rightward axis. Non-specific T wave changes. 10/03/18 21:58 Chest X-ray reviewed, shows right-sided pneumonia. 10/04/18 00:[address] Adamson, who is aware and agrees with plan. Pt will go to remote telemetry observation for COPD and pneumonia. - EKG Interpretation Interpreted by ED Physician: Yes Type: 12 lead EKG - Scribe Statement The provider has reviewed the documentation as recorded by the Scribe Elaine Barrios Provider Scribe Attestation: All medical record entries made by the Scribe were at my direction and personally dictated by me. I have reviewed the chart and agree that the record accurately reflects my personal performance of the history, physical exam, medical decision making, and the department course for this patient. I have also personally directed, reviewed, and agree with the discharge instructions and disposition. Disposition/Present on Arrival - Present on Arrival Any Indicators Present on Arrival: No History of DVT/PE: No History of Uncontrolled Diabetes: No Urinary Catheter: No History of Decub. Ulcer: No History Surgical Site Infection Following: None - Disposition Have Diagnosis and Disposition been Completed?: Yes Diagnosis: Chronic obstructive airway disease Disposition: HOSPITALIZED Disposition Time: 00:50 Condition: FAIR Discharge Instructions (ExitCare): Shortness of Breath (Dyspnea) (DC)
[2018-10-03] MEDS: Albuterol-Ipratrop 3 mg / 0.5 (3 ml) UD IH SCH ×3 (21:30→22:00)
[2018-10-03 21:43] LABS: BASO # 0.02 K/mm3 (0.0-2.0); BASO % 0.4 % (0.0-3.0); EOS # 0.3 (0.0-0.7); EOS % 4.4 % (1.5-5.0); HEMOGLOBIN 17.8 g/dL (14.0-18.0); LYMPH # 1.4 (1.2-3.4); LYMPH % 24.3 % (22.0-35.0); MEAN CORPUSCULAR HEMOGLOBIN 29.8 pg (25.0-35.0); MEAN CORPUSCULAR HGB CONC 33.1 g/dl (31.0-37.0); MEAN PLATELET VOLUME 11.9 fl (7.0-11.0); MONO # 0.5 (0.1-0.6); MONO % 8.8 % (1.0-6.0); RBC 5.98 10^6/uL (3.5-6.1); RED CELL DISTRIBUTION WIDTH 14.3 % (11.5-14.5); WHITE BLOOD COUNT 5.7 10^3/uL (4.5-11.0)
[2018-10-03 21:46] LABS: INR 1.08; PARTIAL THROMBOPLASTIN TIME 33.1 Seconds (26.9-38.3)
[2018-10-03 21:54] LABS: ALB/GLOB RATIO 1.4 (1.1-1.8); ALBUMIN 4.5 g/dL (3.0-4.8); ALT/SGPT 8 U/L (7-56); AST/SGOT 23 U/L (17-59); B-TYPE NATRIURETIC PEPTIDE 42.3 pg/mL (0-450); BLOOD UREA NITROGEN 10 mg/dL (7-21); CALCIUM 9.1 mg/dL (8.4-10.5); GFR NON-AFRICAN AMERICAN > 60; TROPONIN I < 0.01 ng/mL
[2018-10-04] MEDS ORDERED: cefTRIAXone 1 gm 1 GM/100 ML BAG IVPB STA (00:51)
[2018-10-04] MEDS ORDERED: Azithromycin 500MG/NS 250ml 500 MG/250 ML BAG IVPB STA (00:52)
[2018-10-04] MEDS ORDERED: Albuterol-Ipratrop 3 mg / 0.5 (3 ml) UD IH PRN (01:00)
[2018-10-04 07:00] VITALS: RESP 18; TEMP 97.6
--- NOTE | 2018-10-04 09:17 | RAD ---
Date of service: 10/03/2018 HISTORY: sob COMPARISON: Portable chest 09/07/2018. FINDINGS: LUNGS: Left PICC unchanged in position. Volume loss of the right lung is again appreciated status post partial right pneumonectomy with increased markings at the bilateral lung bases likely reflecting fibrosis on a chronic basis. No definitive interval consolidation. PLEURA: No significant pleural effusion identified, no pneumothorax apparent. CARDIOVASCULAR: No aortic atherosclerotic calcification present. Normal cardiac size. No pulmonary vascular congestion. OSSEOUS STRUCTURES: No significant abnormalities. VISUALIZED UPPER ABDOMEN: Normal. OTHER FINDINGS: None. IMPRESSION: Post right partial pneumonectomy changes reiterated including limited volume loss of the right lung with bilateral basilar fibrotic changes reiterated. No consolidation in the interval bilaterally. Left PICC unchanged in position.
[2018-10-04 09:42] VITALS: BP 141/91; PULSE 97; O2SAT 99
--- NOTE | 2018-10-04 10:03 | CARD ---
APPROVED REPORT Date of service: 10/03/2018 EKG Measurement Heart [id number] <Conclusion> Sinus tachycardia Possible Left atrial enlargement Rightward axis T wave abnormality, consider inferior ischemia Abnormal ECG
== END 2018-10-04 09:51 | disposition left against medical advice (07) ==
LOC: ED 20:45 → UNDOADMOB 10-04 00:52 → ERH 10-04 00:52
DX: J44.9 Chronic obstructive pulmonary disease, unspecified (principal); I10 Essential (primary) hypertension; Z87.891 Personal history of nicotine dependence
CPT/HCPCS: 71045; 80053; 82550; 83615; 83735; 83880; 84484; 85025; 85610; 85730; 87040; 93005; 96374; 99285; J0456; J0696; J2930

== ENCOUNTER 2018-10-15 12:34 | Emergency (ER) | payer MEDICARE | END 2018-10-15 16:50 | disposition home or self-care (01) | LOC: ED 12:34 ==

== ENCOUNTER 2018-10-18 13:36 | Outpatient (CLI) | payer MEDICARE | END 2018-10-18 13:37 | disposition home or self-care (01) | LOC: RAD 13:36 ==